=== PATIENT | male | born 1965 | race Caucasian/White ===

== ENCOUNTER 2021-11-18 17:50 | Inpatient (IN) | payer MEDICAID, MEDICARE ==
[~2021-11-18] VITALS: Ht 180.3 cm; Wt 100.7 kg
--- NOTE | 2021-11-18 19:00 | NUR ---
BIB [facility] 881 FORM A BUS BENCH,WORSENING RIGHT FOOT/LEG CELLULITIS. PLACED ON BED, AAXO4, BREATHING EVEN AND UNLABORED SATURATING AT 97%RA.
[2021-11-18] MEDS ORDERED: TDAP [DIPH/PERTUSSIS/TET] 0.5 ML VIAL IM ONE ×2 (20:30→21:03)
[2021-11-18] MEDS ORDERED: VANCOMYCIN 1 GM in IV D5W 250 ML IV ONE (20:30)
[2021-11-18] MEDS ORDERED: PIPERACILLIN /TAZOBACTAM 3.375 G in IV D5W 50 ML IV ONE (20:30)
[2021-11-18] MEDS ORDERED: IV NS 0.9% 1,000 ML BAG IV ONE ×2 (20:30→22:30)
--- NOTE | 2021-11-18 20:40 | NUR ---
BLOOD DRAWN AND SENT TO LAB
[2021-11-18] MEDS ORDERED: PIPERACILLIN /TAZOBACTAM 3.375 G VIAL IV ONE (21:02)
[2021-11-18] MEDS ORDERED: VANCOMYCIN 1 GM VIAL ONE (21:03)
[2021-11-18 21:31] LABS: HEMATOCRIT 30 % (39-51); HEMOGLOBIN 9.6 g/dL (13.5-17.5); LYMPHOCYTES # (AUTO) 2.1 K/uL (0.8-4.8); MEAN CORPUSCULAR HGB CONC 32 g/dl (31.0-36.0); MEAN CORPUSCULAR VOLUME 69 fL (80-96); MONOCYTES # (AUTO) 0.5 K/uL (0.1-1.30); MONOCYTES % (AUTO) 0.9 % (2.0-12.0); NEUTROPHILS # (AUTO) 49.3 K/uL (1.8-8.9); NEUTROPHILS % (AUTO) 95.1 % (43.0-81.0); PLATELET COUNT (AUTO) 577 K/uL (150-450); RED BLOOD CELL COUNT(AUTO) 4.33 MIL/uL (4.5-6.0)
[2021-11-18 21:39] LABS: WHITE BLOOD COUNT (AUTO) 51.9 K/uL (4.3-11.0)
--- NOTE | 2021-11-18 21:39 | NUR ---
CRITICAL RESULT WBC 51.9. YAQUELIN HDZ MADE AWARE.
--- NOTE | 2021-11-18 21:47 | NUR ---
SWAB FOR COVID19 SENT TO LAB
[2021-11-18 22:04] LABS: CARBON DIOXIDE 21 mmol/L (21-32); CHLORIDE 84 mmol/L (98-107); CREATININE 4.1 mg/dL (0.6-1.3); GLUCOSE 100 mg/dL (74-106)
[2021-11-18 22:10] LABS: ALANINE AMINOTRANSFERASE 32 U/L (12-78); ALBUMIN 1.7 g/dL (3.4-5.0); ALKALINE PHOSPHATASE 167 U/L (46-116); ASPARTATE AMINOTRANSFERASE 40 U/L (15-37); BILIRUBIN,DIRECT 0.9 mg/dL (0.0-0.2); BILIRUBIN,TOTAL 1.5 mg/dL (0.2-1.0); TOTAL PROTEIN, SERUM 10.3 g/dL (6.4-8.2)
[2021-11-18 22:21] LABS: SODIUM SERUM 120 mmol/L (136-145)
[2021-11-18 22:22] LABS: POTASSIUM 6.5 mmol/L (3.5-5.1); UREA NITROGEN, BLOOD 104 mg/dL (7-18)
[2021-11-18] MEDS ORDERED: DEXTROSE 50%-WATER 50 ML DISP.SYRIN IV ONE (22:30)
[2021-11-18] MEDS ORDERED: SODIUM BICARBONATE SYR 50 MEQ/50 ML DISP.SYRIN IV ONE (22:30)
[2021-11-18] MEDS ORDERED: INSULIN REGULAR, HUMAN 100 UNIT/ML 10 ML VIAL IV ONE (22:30)
[2021-11-18] MEDS ORDERED: DEXTROSE 50%-WATER 50 ML DISP.SYRIN IVP ONE (22:30)
[2021-11-18] MEDS ORDERED: ALBUTEROL FS 2.5 MG/3 ML VIAL.NEB NEB ONE (22:30)
[2021-11-18] MEDS ORDERED: SODIUM POLYSTYRENE SULFONATE 15 G/60 ML BOTTLE PO ONE (22:30)
[2021-11-18 22:48] LABS: BAND % (MANUAL) 16 % (0.0-5.0); BASOPHILS % (MANUAL) 0 % (0.0-2.0); EOSINOPHILS % (MANUAL) 0 % (0-4); LYMPHOCYTES % (MANUAL) 6 % (16-48); MONOCYTES % (MANUAL) 4 % (0-11.0); NEUTROPHILS % (MANUAL) 74 (42-76)
--- NOTE | 2021-11-18 23:04 | NUR ---
RAC #18G S/L PATENT AND INTACT,
[2021-11-18] MEDS ORDERED: MAG HYDROX/AL HYDROX/SIMETH 30 ML UDC PO PRN (23:30)
[2021-11-18] MEDS ORDERED: Z GUARD REMEDY 4 OZ OINT TP PRN (23:30)
[2021-11-18] MEDS ORDERED: MAGNESIUM HYDROXIDE 30 ML UDC PO PRN (23:30)
[2021-11-18] MEDS ORDERED: ACETAMINOPHEN 325 MG TABLET PO PRN (23:30)
--- NOTE | 2021-11-18 23:31 | NUR ---
RT CALLED FOR BREATHING TX
[2021-11-19] MEDS ORDERED: PERMETHRIN 59 ML BOTTLE TP ONE
--- NOTE | 2021-11-19 02:00 | NUR ---
IV CANNULA G18 INSERTED ON LEFT UPPER ARM.
[2021-11-19 02:42] LABS: CALCIUM, SERUM 7.2 mg/dL (8.5-10.1); POTASSIUM 5.2 mmol/L (3.5-5.1)
[2021-11-19 04:47] LABS: BASOPHILS % (AUTO) 0.1 % (0.0-2.0); HEMATOCRIT 28 % (39-51); HEMOGLOBIN 8.8 g/dL (13.5-17.5); LYMPHOCYTES # (AUTO) 1.2 K/uL (0.8-4.8); LYMPHOCYTES % (AUTO) 2.5 % (20.0-44.0); MEAN CORPUSCULAR HGB CONC 31 g/dl (31.0-36.0); MEAN CORPUSCULAR VOLUME 70 fL (80-96); MONOCYTES # (AUTO) 0.6 K/uL (0.1-1.30); MONOCYTES % (AUTO) 1.3 % (2.0-12.0); NEUTROPHILS # (AUTO) 45.3 K/uL (1.8-8.9); NEUTROPHILS % (AUTO) 96.1 % (43.0-81.0); PLATELET COUNT (AUTO) 444 K/uL (150-450); RED BLOOD CELL COUNT(AUTO) 4.06 MIL/uL (4.5-6.0)
[2021-11-19 04:58] LABS: WHITE BLOOD COUNT (AUTO) 47.1 K/uL (4.3-11.0)
[2021-11-19] MEDS ORDERED: MEROPENEM 1 G in IV NS 0.9% 100 ML IV SCH (05:00)
[2021-11-19] MEDS ORDERED: MEROPENEM 1 G VIAL IV ONE (05:10)
[2021-11-19 05:14] LABS: PHOSPHORUS 9.3 mg/dL (2.5-4.9)
[2021-11-19 05:24] LABS: BAND % (MANUAL) 21 % (0.0-5.0); LYMPHOCYTES % (MANUAL) 5 % (16-48); NEUTROPHILS % (MANUAL) 71 (42-76)
[2021-11-19 05:25] LABS: BASOPHILS % (MANUAL) 0 % (0.0-2.0); EOSINOPHILS % (MANUAL) 0 % (0-4); MONOCYTES % (MANUAL) 3 % (0-11.0)
--- NOTE | 2021-11-19 08:13 | NUR ---
ROOM 120
--- NOTE | 2021-11-19 08:27 | NUR ---
PT REPORT GIVEN TO PENG CARRASQUILLO
--- NOTE | 2021-11-19 08:57 | NUR ---
PT TRANSFERRED TO RM 120 FOR DMITRIY, WITH ACLS PROTOCOL.
--- NOTE | 2021-11-19 09:00 | NUR ---
RN OPENING NOTES RECEIVED PATIENT FROM EMERGENCY DEPARTMENT. IV ACCESS ON LEFT UPPER ARM PERIPHERAL IV, RUNNING NORMAL SALINE ORDERED. OXYGEN SATURATION 96-98% ON ROOM AIR. ATTCHED TO TELEMETRY MONITORING READING NORMAL SINUS. SAFETY MEASURES IMPLEMENTED, CALL LIGHT WITHIN REACH, WILL CONTINUE PLAN OF CARE AND ANTICIPATE NEEDS.
--- NOTE | 2021-11-19 09:19 | NUR ---
WOUND CARE CONSULT: PT PRESENTS WITH INSECT CRAWLING ON TOP OF SCALP AND WOUND TO RT LOWER LEG WITH MAGGOTS, PRESENT ON ADMISSION. DEFER TO PMD FOR POSSIBLE LICE. RECOMMEND DPM CONSULT FOR LOWER LEG. DR MATEUS YING MD IN AGREEMENT WITH PLAN OF CARE.
[2021-11-19] MEDS: IV NS 0.9% 1,000 ML IV PRN ×2 (10:16→20:46)
[2021-11-19 12:00] VITALS: BP 120/58
[2021-11-19] MEDS: DAKINS FULL STRENGTH (0.5%) 480 ML BOTTLE TOP SCH (15:46)
[2021-11-19 16:00] VITALS: BP 113/55
[2021-11-19] MEDS: MEROPENEM 1 G in IV NS 0.9% 100 ML IV SCH (17:00)
--- NOTE | 2021-11-19 18:58 | NUR ---
RN CLOSING NOTES PATIENT REMAINS IN ROOM. IV ACCESS ON LEFT UPPER ARM PERIPHERAL IV, RUNNING NORMAL SALINE ORDERED. OXYGEN SATURATION 96-98% ON ROOM AIR. ATTACHED TO TELEMETRY MONITORING READING NORMAL SINUS TO SINUS TACHY. WOUND CARE PERFORMED, DRESSING DRY AND INTACT. SAFETY MEASURES IMPLEMENTED, CALL LIGHT WITHIN REACH, WILL ENDORSE TO NIGHTSHIFT FOR CONTINUATION OF CARE.
--- NOTE | 2021-11-19 19:47 | NUR ---
WEIGHT INSPECTOR OPENING NOTES RECEIVED PT AWAKE IN BED. A/O X4, WITH IV ACCESS ON MANISHA #18G PERIPHERAL IV, RUNNING NORMAL SALINE AT 150 ML/HR. OXYGEN SATURATION 96-98% ON ROOM AIR. ATTACHED TO TELEMETRY MONITORING READING SR AT THIS TIME. NOTED WITH B LOWEG LEG WOUND, DRESSING DRY AND INTACT. SAFETY MEASURES IMPLEMENTED, BED IN LOWEST AND LOCKED POSITION, CALL LIGHT WITHIN REACH, WILL CONTINUE TO MONITOR THROUGHOUT THE SHIFT.
[2021-11-19 20:00] VITALS: BP 109/54
[2021-11-19] MEDS: CLINDAMYCIN 900 MG in IV D5W 50 ML IV SCH (20:54)
[2021-11-19] MEDS: FLUCONAZOLE (100 MG) 100 MG TABLET PO SCH (20:54)
[2021-11-19] MEDS: MORPHINE SULFATE INJ 2 MG/ML DISP.SYRIN IV PRN (20:55)
[2021-11-19] MEDS ORDERED: FLUCONAZOLE IN NS 100 MG in PREMIX 1 EA IV SCH ×2 (21:00)
[2021-11-19] MEDS ORDERED: CLINDAMYCIN IV RTU IN D5W 900 MG/50 ML PIGGYBACK IV SCH (21:00)
--- NOTE | 2021-11-19 22:05 | NUR ---
RN NOTE NOTED PT GRIMACING UPON CHANGING POSITION, GUARDING ON HIS R LEG, PATIENT REFUSED IV MORPHINE FOR PAIN. "I CAN'T BELIEVE YOU GIVING ME PAIN MEDICATION, MY PAIN RIGHT NOW IS TOLERABLE". EDUCATED ON THE COMFORT HE GETS AFTER GETTING THIS MEDICATION, PT STILL REFUSES. INSTRUCTED TO CALL FOR ASSISTANCE WHEN NEEDED. WILL CONT TO MONITOR.
[2021-11-19] MEDS ORDERED: VANCOMYCIN 1.25 GM in IV D5W 250 ML IV SCH (23:00)
[2021-11-20] VITALS: BP 110/52
[2021-11-20 04:00] VITALS: BP 111/57
[2021-11-20] MEDS: CLINDAMYCIN 900 MG in IV D5W 50 ML IV SCH ×3 (04:50→21:32)
--- NOTE | 2021-11-20 05:30 | NUR ---
RN NOTE PT IV ACCESS ON MANISHA #18G WAS INFILTRATED. IVF STOPPED, ICE PACKS PROVIDED. PT SCHEDULED IV ABX HELD AT THIS TIME. ATTEMPTED TO START NEW IV ACCESS ON THE RFA, NO BLOOD RETURN. PATIENT IS HARDSTICK, JACOB TOLLIVER MADE AWARE. SHE THEN INFORMED NURSING DRIVE THRU ORDER TAKER TO ORDER MIDLINE INSERTION. AWAITING FOR ML NURSE TO START AN IV ACCESS.
[2021-11-20] MEDS: IV NS 0.9% 1,000 ML IV PRN (06:34)
--- NOTE | 2021-11-20 06:41 | NUR ---
FISCAL SERVICES MANAGER CLOSING NOTES PT REMAINS IN BED AWAKE, A/O X4, ON ROOM AIR TOLERATING WELL WITH OXYGEN SATURATION 96-98%. ATTACHED TO TELEMETRY MONITORING READING SR AT THIS TIME. NOTED WITH R LOWER LEG WOUND, DRESSING DRY AND INTACT. NO IV ACCESS AT THIS TIME, AWAITING FOR MIDLINE INSERTION, KEPT DRY AND CLEAN, SAFETY MEASURES IMPLEMENTED, BED IN LOWEST AND LOCKED POSITION, CALL LIGHT WITHIN REACH, MAINTAINED IN CONTACT ISOLATION. WILL ENDORSE TO AM SHIFT NURSE FOR CONTINUITY OF CARE.
--- NOTE | 2021-11-20 07:30 | NUR ---
RN OPENING NOTE RECEIVED PATIENT IN BED.AWAKE, ALERT AND ORIENTED X4.ABLE TO MAKE NEEDS KNOWN. PATIENT HAS IV ACCESS ON LEFT UPPER ARM PERIPHERAL IV. IV SITE INFILLRIATED. WAITING FOR MIDLINE INSERTION. RUNNING NORMAL SALINE. O2 SATURATION TOLERATING AT 98%. PATIENT IS ON EXTERNAL TELEMETRRY MONITORING READING SINUS RHYTM.PATIENT HAS WOUND ON RIGHT LOWER EXTREMITY WOUND. ALL SAFETY MEASURES IN PLACE. CALL LIGHT WITHIN REACH.BED LOCKED AT LOWEST POSITION. SIDE RAILS UP X2. BED ALARM ON.
[2021-11-20 07:53] LABS: CREATININE 1.9 mg/dL (0.6-1.3); POTASSIUM 3.7 mmol/L (3.5-5.1)
[2021-11-20 08:00] VITALS: BP 129/58
[2021-11-20 08:22] LABS: BILIRUBIN,URINE NEGATIVE (NEGATIVE); COLOR,URINE YELLOW (YELLOW); LEUKOCYTE ESTERASE ,URINE NEGATIVE (NEGATIVE); NITRITE, URINE NEGATIVE (NEGATIVE); PH,URINE 5.5 (5.0-8.0); PROTEIN,URINE NEGATIVE (NEGATIVE); UGLUCOSE NEGATIVE (NEGATIVE); UROBILINOGEN,URINE 0.2 EU/dL (0.2)
[2021-11-20] MEDS: DAKINS QUARTER STRENGTH (0.125%) 480 ML BOTTLE TOP SCH (09:00)
[2021-11-20] MEDS: DAKINS FULL STRENGTH (0.5%) 480 ML BOTTLE TOP SCH (09:00)
[2021-11-20 09:11] LABS: BACTERIA,URINE None seen /HPF (None Seen); HYALINE CASTS, URINE Rare /LPF (None Seen); RBC,URINE 0-2 /HPF (0-2); SQUAMOUS EPITHELIAL CELL,UR None Seen /HPF (None Seen); URIC ACID CRYSTALS,URINE Many /HPF (None Seen); WBC,URINE NONE SEEN /HPF (0-3)
[2021-11-20] MEDS: MEROPENEM 1 G in IV NS 0.9% 100 ML IV SCH ×2 (10:07→17:10)
[2021-11-20 12:00] VITALS: BP 116/61
--- NOTE | 2021-11-20 14:38 | NUR ---
SS Consult: SS Consult requested for homelessness. The pt. is a 56-year-old male patient who came in for gangrene in the foot. Upon SS consult, the pt. is Alert & Oriented x 4 and makes good eye contact. The pt. appears very disheveled with depressed mood & affect. Pt.s speech and thought process are WNL. Pt. remained calm & cooperative throughout interview. Pt. Pt. denies SI/HI and denies hallucinations. Pt. denies any previous diagnosis of mental illness. JORDYN explored pt.s living situation. Patient states he is currently experiencing homelessness. SW explored pt.s drug & ETOH use. Pt. denies any drug or alcohol use. Pt. stated he is not really able to ambulate independently at this time and is otherwise independent with all his ADLs per pt. JORDYN explored pt.s support system. Pt. states he has no support system. Plan: SW was informed that pt. will possibly need SNF for IV antibiotics. JORDYN discussed this with pt. and he is agreeable to placement. JORDYN notified Susan RODRIGUES. JORDYN provided pt. with homeless and mental health resources, and he accepted them. Pt. signed homeless waiver and it was placed in the pt.s chart. JORDYN provided tp. with TAP card and pt. expressed appreciation. JORDYN notified the pt.s nurse. JORDYN provided pt. with homeless resources and pt. accepted them. Pt. refused to sign waiver and it was placed in the pt.s chart. Year-round shelters: [facility] [address] [place], [place] [id number] ; [facility] [address] [place] [address]; [facility] Yideev[address] [facility]. [facility] [address] Hygiene: [facility]: [address]. [place] ; [facility] [address] [facility] ; [facility] [address] . Food Resources: [place] [facility] at [facility]- [address] [place]; Meet Each Need with Dignity ([facility]) [address]; [facility] [address] [facility]; [facility] [address] [place] Gracie Arceka. Mental Health resources provided: [facility] [address] [place] [address] ; [facility] [address] [facility] [address], [place] [address] ; [facility] [address] [place] [address] ; [facility] [address] [place], [place] [phone] Healthcare Clinics: [facility] [address] [facility], [address] [place]. [place] ; [facility] [address] [facility] [address] [place] [address]; [facility] [address] [place] [phone] Counseling--[facility] [address], [place] [address] (Specializes in in-depth psychotherapy for emotional distress: anxiety, depression, interpersonal conflicts, life transitions, childhood abuse) [facility] [address] [place] [address] (Assist with solving problem marital difficulties, separation & divorce, aging parents, & grief, chronic & terminal illness) [facility] [address] [place] [address] (Deal with loss & grief, anxiety, marital difficulties) Homebound/Mental Health Services [address] [facility], [address] [place] [address] (Provide in-home mental services to people who are incapable of leaving their homes) [facility] [address] [place] [address] [facility] [address] [facility] [place]. [facility] [place] [address] PSYCHIATRIC OUTPATIENT SERVICES [facility] Partial Hospitalization and Intensive Outpatient Program (Managed Care and [place] Only)[address] [facility] [phone] [facility] Partial Hospitalization and Outpatient [address] [place], [place] [phone] [facility] [address] [place], [place] [phone] [facility] Partial Hospitalization and Outpatient [id number] [facility] Amrita, [phone] Substance Abuse resources provided included: [facility] Substance Abuse Self-Helpline ([facility]) ; [facility] [address] [facility]. [place] [phone] ; [facility] [address] [facility] [address] ; [facility] [address] [address] ; [facility] [address] [phone] ; [facility] [address] [facility] [facility] [facility] [address] ; [facility] [address] [facility] [phone] ; [facility] Substance Abuse Helpline([facility] ; [facility] ; [facility] [place]; [facility] [place]; [facility] [place]lo [place]; [facility] [place]; [facility]; [facility]; [facility] [place], [facility]. [place]; Alcoholics Anonymous -[facility]; Richi ; Marijuana Anonymous [facility]; Narcotics Anonymous www.na.org;
[2021-11-20 16:00] VITALS: BP 104/55
--- NOTE | 2021-11-20 19:30 | NUR ---
FINANCIAL SERVICES MANAGER OPENING NOTE RECEIVED PATIENT IN BED SLEPP, EASILY AROUSABLE, A/OX4.ABLE TO MAKE NEEDS KNOWN. ON RA TOLERATING WELL, NO S/S OF ACUTE DISTRESS, TELE MONITOR READING SR HR 84, IV ACCESS ON MANISHA #20G, RUNNING NS@150ML/HR. PATIENT HAS RLE BANDAGES COVERING WOUNDS DOCUMENTED IN CHART WITH PHOTOS. ALL SAFETY MEASURES IN PLACE. CALL LIGHT WITHIN REACH.BED LOCKED AT LOWEST POSITION. SIDE RAILS UP X2. BED ALARM ON. WILL CONTINUE TO MONITOR THROUGHOUT SHIFT.
--- NOTE | 2021-11-20 19:48 | NUR ---
RN CLOSING NOTE PATIENT ALERT AND ORIENTED X4. ABLE TO MAKE NEEDS KNOWN. ALL NEEDS MET. PATIENT HAS RIGHT UPPER ARM MIDLINE. IV SITE PATENT,INTACT AND FLUSHING WELL. PATIENT IS ON OXYGEN SATURATION TOLERATING AT ABOVE 95%. CHANGED WOUND DRESSING. KEPT CLEAN AND DRY. ALL SAFETY MEASURES IN PLACE. CALL LIGHT WITHIN REACH. BED LOCKED AT LOWEST POSITION. SIDE RAILS UP X2. BED ALARM ON. PATIENT ON CONTACT ISOLATION PRECAUTIONS DUE TO WOUND OF RIGHT LOWER EXTREMITY WOUND.
[2021-11-20 20:00] VITALS: BP 113/59
[2021-11-20] MEDS: FLUCONAZOLE (100 MG) 100 MG TABLET PO SCH (21:32)
[2021-11-21] VITALS: BP 108/55
[2021-11-21 04:00] VITALS: BP 111/64
[2021-11-21] MEDS: IV NS 0.9% 1,000 ML IV PRN ×2 (04:36→17:22)
[2021-11-21] MEDS: CLINDAMYCIN 900 MG in IV D5W 50 ML IV SCH ×3 (04:56→20:03)
[2021-11-21] MEDS: MEROPENEM 1 G in IV NS 0.9% 100 ML IV SCH ×2 (05:54→17:22)
--- NOTE | 2021-11-21 06:54 | NUR ---
ARCHITECTURAL DESIGNER CLOSING NOTE PATIENT IN BED SLEEP, EASILY AROUSABLE, A/OX4.ABLE TO MAKE NEEDS KNOWN. ON RA TOLERATING WELL, NO S/S OF ACUTE DISTRESS, TELE MONITOR READING SR HR 83, IV ACCESS ON MANISHA #20G, RUNNING NS@150ML/HR. PATIENT HAS RLE WOUNDS, CLEANED AND BANDAGED.ALL DUE MEDS GIVEN. ALL SAFETY MEASURES IN PLACE. BED IN LOWEST POSITION AND LOCKED, SIDE RAILS UP X3. PLACE CALL LIGHT WITHIN REACH. WILL ENDORSE TO MORNING SHIFT
--- NOTE | 2021-11-21 07:57 | NUR ---
RN OPENING NOTE RECEIVED PATIENT ALERT AND ORIENTED X4. ABLE TO MAKE NEEDS KNOWN. PATIENT HAS RIGHT UPPER ARM MIDLINE. PATIENT IS SINUS RHYTM ON TELE MONITOR. IV SITE PATENT,INTACT AND FLUSHING WELL. PATIENT IS ON ROOM AIR TOLERATING AT ABOVE 97%. ALL SAFETY MEASURES IN PLACE.PATIENT ON CONTACT ISOLATIONS DUE TO LICE AND MAGGOT INFESTED LOWER EXTREMITY WOUND. CALL LIGHT WITHIN REACH. BED LOCKED AT LOWEST POSITION. SIDE RAILS UP X2. BED ALARM ON. PATIENT ON CONTACT ISOLATION PRECAUTIONS DUE TO MAGGOT-INFESTED WOUND OF RIGHT LOWER EXTREMITY WOUND.
[2021-11-21 08:00] VITALS: BP 111/66
[2021-11-21] MEDS: DAKINS QUARTER STRENGTH (0.125%) 480 ML BOTTLE TOP SCH (10:42)
[2021-11-21] MEDS: DAKINS FULL STRENGTH (0.5%) 480 ML BOTTLE TOP SCH (10:42)
[2021-11-21] MEDS ORDERED: HYDROGEN PEROXIDE 480 ML BOTTLE TP PRN (11:00)
--- NOTE | 2021-11-21 11:00 | NUR ---
cable television access coordinator note called ct to follow up on when ct of right lower extremity wound of when it will be done.said they would get back to me and most likely procedure will be done Wednesday. notified manpower development manager chilango louis and charge nurse
[2021-11-21 12:00] VITALS: BP 118/61
[2021-11-21] MEDS: HEPARIN SODIUM, PORCINE 5000 UNITS/1 ML VIAL SQ SCH ×2 (12:12→20:04)
[2021-11-21 15:32] LABS: BILIRUBIN,TOTAL 0.4 mg/dL (0.2-1.0); CREATININE 1.4 mg/dL (0.6-1.3); MAGNESIUM 2.6 mg/dL (1.8-2.4); PHOSPHORUS 4.3 mg/dL (2.5-4.9); TOTAL PROTEIN, SERUM 7.7 g/dL (6.4-8.2)
[2021-11-21 16:00] VITALS: BP 117/63
[2021-11-21 16:16] LABS: EOSINOPHILS % (AUTO) 0.4 % (0.0-6.0); HEMATOCRIT 25 % (39-51); HEMOGLOBIN 7.7 g/dL (13.5-17.5); LYMPHOCYTES # (AUTO) 1.4 K/uL (0.8-4.8); LYMPHOCYTES % (AUTO) 6.1 % (20.0-44.0); MEAN CORPUSCULAR HGB CONC 31 g/dl (31.0-36.0); MEAN CORPUSCULAR VOLUME 71 fL (80-96); MONOCYTES # (AUTO) 0.8 K/uL (0.1-1.30); MONOCYTES % (AUTO) 3.4 % (2.0-12.0); NEUTROPHILS # (AUTO) 21.4 K/uL (1.8-8.9); NEUTROPHILS % (AUTO) 90.1 % (43.0-81.0); PLATELET COUNT (AUTO) 304 K/uL (150-450); RED BLOOD CELL COUNT(AUTO) 3.52 MIL/uL (4.5-6.0); WHITE BLOOD COUNT (AUTO) 23.8 K/uL (4.3-11.0)
[2021-11-21] MEDS: ALBUMIN 25% 25 GM in PREMIX 1 EA IV SCH (17:22)
--- NOTE | 2021-11-21 18:24 | NUR ---
SIGNAL APPRENTICE NOTES ISABEL CONTRERAS NOTIFIED ABOUT PT RITTER MCMULLEN, PLT OF 304 FROM 444 AND ALSO MRSA POSITIVE NARES. OKAY TO GIVE HEPARIN AND WILL ORDER BACTROBAN OINTMENT
--- NOTE | 2021-11-21 19:51 | NUR ---
TOW MOTOR DRIVER OPENING NOTE RECEIVED PATIENT ALERT AND ORIENTED X4. ABLE TO MAKE NEEDS KNOWN. PATIENT HAS RIGHT UPPER ARM MIDLINE. PATIENT IS SINUS RHYTM ON TELE MONITOR. IV SITE PATENT,INTACT AND FLUSHING WELL. PATIENT IS ON ROOM AIR TOLERATING AT ABOVE 97%. ALL SAFETY MEASURES IN PLACE.PATIENT ON CONTACT ISOLATIONS DUE TO LICE AND MAGGOT INFESTED LOWER EXTREMITY WOUND. CALL LIGHT WITHIN REACH. BED LOCKED AT LOWEST POSITION. SIDE RAILS UP X2. BED ALARM ON. PATIENT ON CONTACT ISOLATION PRECAUTIONS DUE TO MAGGOT-INFESTED WOUND OF RIGHT LOWER EXTREMITY WOUND. WILL CONTINUE TO MONITOR.
--- NOTE | 2021-11-21 19:52 | NUR ---
RN CLOSING NOTE PATIENT ALERT AND ORIENTED X4. ALL NEEDS MET.RIGHT UPPER ARM MIDLINE INTACT AND PATENT. SINUS RHYTM ON TELE MONITOR.ON ROOM AIR TOLERATING AT ABOVE 97%. ALL SAFETY MEASURES IN PLACE.PATIENT ON CONTACT ISOLATIONS DUE TO LICE AND MAGGOT INFESTED LOWER EXTREMITY WOUND. CALL LIGHT WITHIN REACH. BED LOCKED AT LOWEST POSITION. KEPT CLEAN AND DRY. CHANGED WOUND DRESSING WITH WOUND CARE DOCTOR. SIDE RAILS UP X2. BED ALARM ON. PATIENT ON CONTACT ISOLATION PRECAUTIONS DUE TO MAGGOT-INFESTED WOUND OF RIGHT LOWER EXTREMITY WOUND.
[2021-11-21] MEDS: MUPIROCIN OINT 2% 22 GM TUBE TP SCH (19:57)
[2021-11-21 20:00] VITALS: BP 115/62
[2021-11-21] MEDS: FLUCONAZOLE (100 MG) 100 MG TABLET PO SCH (20:02)
[2021-11-21 22:38] LABS: BAND % (MANUAL) 4 % (0.0-5.0); LYMPHOCYTES % (MANUAL) 7 % (16-48); MONOCYTES % (MANUAL) 3 % (0-11.0); NEUTROPHILS % (MANUAL) 86 (42-76)
[2021-11-22] VITALS: BP 120/61
[2021-11-22 04:00] VITALS: BP 117/60
[2021-11-22] MEDS: CLINDAMYCIN 900 MG in IV D5W 50 ML IV SCH ×3 (05:07→21:38)
[2021-11-22] MEDS: MEROPENEM 1 G in IV NS 0.9% 100 ML IV SCH ×3 (05:08→20:42)
[2021-11-22] MEDS: ALBUMIN 25% 25 GM in PREMIX 1 EA IV SCH (05:08)
[2021-11-22] MEDS: IV NS 0.9% 1,000 ML IV PRN ×3 (05:10→23:10)
[2021-11-22] MEDS: MUPIROCIN OINT 2% 22 GM TUBE TP SCH ×2 (06:09→17:33)
--- NOTE | 2021-11-22 07:36 | NUR ---
TROUBLE SHOOTER CLOSING NOTE PATIENT REMAINS IN BED, ALERT AND ORIENTED X4. ABLE TO MAKE NEEDS KNOWN. PATIENT HAS RIGHT UPPER ARM MIDLINE. PATIENT IS SINUS RHYTM ON TELE MONITOR. IV SITE PATENT,INTACT AND FLUSHING WELL. PATIENT IS ON ROOM AIR TOLERATING AT ABOVE 97%. ALL SAFETY MEASURES IN PLACE. PATIENT ON CONTACT ISOLATIONS DUE TO LICE AND MAGGOT INFESTED LOWER EXTREMITY WOUND. CALL LIGHT WITHIN REACH. ALL DUE MEDS GIVEN, KEPT DRY AND CLEAN, BED LOCKED AT LOWEST POSITION. SIDE RAILS UP X2. BED ALARM ON. PATIENT ON CONTACT ISOLATION PRECAUTIONS DUE TO MAGGOT-INFESTED WOUND OF RIGHT LOWER EXTREMITY WOUND. WILL ENDORSE TO AM SHIFT NURSE FOR CONTINUITY OF CARE.
[2021-11-22 08:00] VITALS: BP 109/62
--- NOTE | 2021-11-22 08:00 | NUR ---
RN NOTES RECEIVED PATIENT A//A/O X4 , ROOM AIR, REFUSED PAIN,VSS. PATIENT ABLE TO MAKE NEEDS KNOWN, SINUS RHYTM ON TELE MONITOR. IV SITE PATENT,INTACT AND FLUSHING WELL, INFUSING NS @150ML OF NS, DUE MEDICATION ADMINISTERED. PATIENT ON CONTACT ISOLATIONS. CALL LIGHT WITHIN REACH. ASSIST TURN AND REPOSTION. WILL FOLLOW UP.
[2021-11-22] MEDS: HEPARIN SODIUM, PORCINE 5000 UNITS/1 ML VIAL SQ SCH ×2 (10:50→20:43)
[2021-11-22] MEDS: DAKINS FULL STRENGTH (0.5%) 480 ML BOTTLE TOP SCH (10:50)
[2021-11-22] MEDS: DAKINS QUARTER STRENGTH (0.125%) 480 ML BOTTLE TOP SCH (10:51)
[2021-11-22 12:00] VITALS: BP 111/62
--- NOTE | 2021-11-22 12:30 | NUR ---
RN NOTES PATIENT REFUSED LUNCH NOTED NOD HUNGRY, WAITING WOUND MD FOR RIGHT LEG DRESSING CHANGE.
[2021-11-22 16:00] VITALS: BP 98/45
--- NOTE | 2021-11-22 18:05 | NUR ---
RN NOTES PATIENT HAS POOR APPETITE, REFUSED PAIN, REFUSED VIA RN TO CHANGE DRESSING, WAITING WOUND MD. PM MEDICATION ADMINISTERED. CALL LIGHT WITHIN TO REACH. ENDORSED ONCOMING NURSE FOLLOW DMITRIY.
--- NOTE | 2021-11-22 19:25 | NUR ---
RN OPENING NOTES RECEIVED CARE OF PATIENT FROM AM SHIFT NURSE, PATIENT IS SLEEPING, WAKES UP TO NAME, A/O X4, DOES NOT EXPRESS PAIN AT THIS TIME. PATIENT IS BREATHING UNDER ROOM AIR, TOLERATING WELL, NO SOB NOTED, O2 SAT 98%. PATIENT IS PLACED ON CONTACT ISOLATIONS DUE TO LICE AND MAGGOT INFESTED LOWER EXTREMITY WOUND. SAFETY MEASURES IMPLEMENTED PER HOSPITAL PROTOCOLS. WILL CARRY OUT PLAN OF CARE.
[2021-11-22 20:00] VITALS: BP 114/53
[2021-11-22] MEDS: FLUCONAZOLE (100 MG) 100 MG TABLET PO SCH (20:42)
[2021-11-23] VITALS: BP 120/80
[2021-11-23 04:00] VITALS: BP 111/82
[2021-11-23] MEDS: CLINDAMYCIN 900 MG in IV D5W 50 ML IV SCH ×3 (05:27→20:18)
[2021-11-23] MEDS: MEROPENEM 1 G in IV NS 0.9% 100 ML IV SCH ×3 (06:01→21:51)
[2021-11-23] MEDS: MUPIROCIN OINT 2% 22 GM TUBE TP SCH ×2 (06:01→17:35)
--- NOTE | 2021-11-23 07:37 | NUR ---
RN OPENING NOTES RECEIVED REPORT FROM SUPERINTENDENT TERMINAL NURSE, PATIENT IS SLEEPING, BREATHING UNDER ROOM AIR, TOLERATING WELL, NO SOB NOTED, O2 SAT 98%. PATIENT IS PLACED ON CONTACT ISOLATIONS DUE TO LICE AND MAGGOT INFESTED LOWER EXTREMITY WOUND. IV ACCESS ON RIGHT UPPER ARM MIDLINE 18 GAUGE RUNNING NORMAL SALINE ORDERED. SAFETY MEASURES IMPLEMENTED PER HOSPITAL PROTOCOLS. WILL CONTINUE PLAN OF CARE AND ANTICIPATE NEEDS.
[2021-11-23 08:00] VITALS: BP 129/66
[2021-11-23] MEDS: DAKINS QUARTER STRENGTH (0.125%) 480 ML BOTTLE TOP SCH (08:42)
[2021-11-23] MEDS: DAKINS FULL STRENGTH (0.5%) 480 ML BOTTLE TOP SCH (08:42)
[2021-11-23] MEDS: HEPARIN SODIUM, PORCINE 5000 UNITS/1 ML VIAL SQ SCH ×2 (08:44→21:00)
[2021-11-23 10:15] LABS: BASOPHILS % (AUTO) 0.1 % (0.0-2.0); EOSINOPHILS % (AUTO) 0.6 % (0.0-6.0); HEMATOCRIT 22 % (39-51); LYMPHOCYTES # (AUTO) 1.1 K/uL (0.8-4.8); LYMPHOCYTES % (AUTO) 7.5 % (20.0-44.0); MEAN CORPUSCULAR HGB CONC 31 g/dl (31.0-36.0); MEAN CORPUSCULAR VOLUME 71 fL (80-96); MONOCYTES # (AUTO) 0.7 K/uL (0.1-1.30); MONOCYTES % (AUTO) 4.8 % (2.0-12.0); NEUTROPHILS # (AUTO) 12.5 K/uL (1.8-8.9); PLATELET COUNT (AUTO) 230 K/uL (150-450); RED BLOOD CELL COUNT(AUTO) 3.14 MIL/uL (4.5-6.0); WHITE BLOOD COUNT (AUTO) 14.3 K/uL (4.3-11.0)
[2021-11-23 10:34] LABS: CALCIUM, SERUM 6.8 mg/dL (8.5-10.1); CREATININE 0.9 mg/dL (0.6-1.3)
[2021-11-23] MEDS: IV NS 0.9% 1,000 ML IV PRN ×2 (11:16→17:02)
[2021-11-23 12:00] VITALS: BP 137/71
--- NOTE | 2021-11-23 15:45 | NUR ---
PATIENT REFUSED WOUND CARE. EXPLAINED TO PATIENT THE IMPORTANCE OF DRESSING CHANGES. PATIENT INSISTS ON WAITING FOR PROVIDER MATEUS, TO ASSIST IN WOUND CARE Addendum: 11/23/21 at 1547 by NEIDA JIMENEZ RN DRESSING DRY AND INTACT. WILL CONTINUE PLAN OF CARE.
[2021-11-23 16:00] VITALS: BP 138/65
--- NOTE | 2021-11-23 18:32 | NUR ---
RN CLOSING NOTES PATIENT IS IN ROOM, BREATHING UNDER ROOM AIR, TOLERATING WELL, NO SOB NOTED, O2 SAT 100%. PATIENT IS PLACED ON CONTACT ISOLATIONS DUE TO LICE AND MAGGOT INFESTED LOWER EXTREMITY WOUND. IV ACCESS ON RIGHT UPPER ARM MIDLINE 18 GAUGE RUNNING NORMAL SALINE ORDERED. SAFETY MEASURES IMPLEMENTED PER HOSPITAL PROTOCOLS. WOUND DRESSINGS INTACT. WILL ENDORSE TO NIGHTSHIFT RN FOR CONTINUATION OF CARE.
[2021-11-23 20:00] VITALS: BP 113/69
[2021-11-23] MEDS: FLUCONAZOLE (100 MG) 100 MG TABLET PO SCH (20:21)
--- NOTE | 2021-11-23 21:00 | NUR ---
Noted patient with hemoglobin 7.0, Informed Gely Machuca regarding heparin administration due, and per her to hold it, order noted and carried out.
[2021-11-24] MEDS: IV NS 0.9% 1,000 ML IV PRN ×2 (03:46→18:15)
[2021-11-24 04:00] VITALS: BP 126/67
[2021-11-24] MEDS: CLINDAMYCIN 900 MG in IV D5W 50 ML IV SCH ×3 (04:08→22:01)
[2021-11-24] MEDS: MEROPENEM 1 G in IV NS 0.9% 100 ML IV SCH ×3 (04:38→22:00)
[2021-11-24] MEDS: MUPIROCIN OINT 2% 22 GM TUBE TP SCH ×2 (06:32→17:43)
--- NOTE | 2021-11-24 06:58 | NUR ---
FOREIGN LANGUAGE STENOGRAPHER CLOSING NOTE PT IN BED, ASLEEP THIS TIME, A/O X4, AT ROOM AIR WITH OPTIMAL O2 SAT LEVEL, NO SOB/ACUTE DISTRESS NOTED, MS STATUS, WOUND TREATMENT DONE ORDERED, PATIENT C/O PAIN, OFFERED PAIN MEDICATION ESPECIALLY BEFORE TREATMENT, AND PATIENT REFUSED, OTHERWISE NO SIGNIFICANT CHANGE IN CONDITION DURING THE NIGHT, ALL SAFETY MEASURES IN PLACE, CALL LIGHT WITHIN REACH AT ALL TIMES, WILL ENDORSE CONTINUITY OF CARE TO ONCOMING NURSE.
--- NOTE | 2021-11-24 07:40 | NUR ---
RN OPENING NOTES RECEIVED PT ALERT AND ORIENTED X4.PT TOLERATING O2 ON ROOM AIR AT 100&. PT IS MED SURG STATUS.PT IS CONTACT ISOLATION PRECAUTIONS DUE TO R LOWER EXTREMITY WOUND INFECTED WITH MAGGOTS AND LICE. PT HAS R UA MIDLINE. RUNNING NORMAL SALINE. ALL SAFETY MEASURES IN PLACE. CALL LIGHT WITHIN REACH. BED LOCKED AT LOWEST POSITION.
[2021-11-24 08:00] VITALS: BP 132/69
[2021-11-24] MEDS: HEPARIN SODIUM, PORCINE 5000 UNITS/1 ML VIAL SQ SCH ×2 (09:38→21:00)
[2021-11-24] MEDS: DAKINS FULL STRENGTH (0.5%) 480 ML BOTTLE TOP SCH (09:39)
[2021-11-24] MEDS: DAKINS QUARTER STRENGTH (0.125%) 480 ML BOTTLE TOP SCH (09:39)
--- NOTE | 2021-11-24 09:39 | NUR ---
rn note called to notify if heparin can be given, hgb 7.0, platelets 230. said ok to give
[2021-11-24] MEDS ORDERED: PANTOPRAZOLE 40 MG VIAL IV SCH (10:30)
[2021-11-24] MEDS: PROSOURCE / PROSTAT (PYXIS) 30 ML UDC GT SCH ×2 (13:00→17:00)
[2021-11-24 16:00] VITALS: BP 133/73
--- NOTE | 2021-11-24 18:50 | NUR ---
rn note prosource nutritional supplement ordered for patient. patient. checked nutiritonal room. prosource is not there.called dietary office/kitchen to follow-up but did not picker packer the phone. will endorse to vanita sterling rn
--- NOTE | 2021-11-24 19:30 | NUR ---
PT AWAKE IN BED. A/0 X4. ON ROOM AIR O2 AT 99%. PT ON CONTACT ISOLATION. ABDIFATAH MIDLINE INTACT AND PATENT. INFUSING NORMAL SALINE AT 150 ML/HR. NON AMBULATORY, ABLE TO USE URINAL. ALL SAFETY MEASURES AND PRECAUTIONS IN PLACE. BED LOCKED IN LOW POSITION. BED ALARM ON. BED RAILS PADDED TO PREVENT INJURY DURING SEIZURES. CALL LIGHT WITHIN REACH. WILL CONTINUE PLAN OF CARE AND ANTICIPATE NEEDS. Addendum: 11/25/21 at 0739 by JANEL YATES RN PT DOES NOT EXPERIENCE ANY SEIZURE. NO NEED FOR PADDED RAILS.
[2021-11-24 20:00] VITALS: BP 114/67
--- NOTE | 2021-11-24 20:06 | NUR ---
RN CLOSING NOTE PT A/0 X4. PT ROOM AIR O2 AT 100%. PT ON CONTACT ISOLATION. R UA MIDLINE INTACT AND PATENT. RUNNING NORMAL SALINE. PT HAS POOR APPETITE. ENCOURAGED ORAL INTAKE. PT REFUSES. WOUND CARE DONE WITH AMBAR WOUND CARE DOCTOR. ALL SAFETY MEASURES IN PLACE. CALL LIGHT WITHIN REACH. BED LOCKED AT LOWEST POSITION. BED ALARM ON. SIDE RAILS UP X2.
[2021-11-24] MEDS: FLUCONAZOLE (100 MG) 100 MG TABLET PO SCH (22:02)
[2021-11-25 04:00] VITALS: BP 131/73
[2021-11-25] MEDS: CLINDAMYCIN 900 MG in IV D5W 50 ML IV SCH ×3 (04:03→22:01)
[2021-11-25] MEDS: MORPHINE SULFATE INJ 2 MG/ML DISP.SYRIN IV PRN (04:03)
[2021-11-25] MEDS: MEROPENEM 1 G in IV NS 0.9% 100 ML IV SCH ×3 (04:03→22:25)
[2021-11-25] MEDS: ONDANSETRON HCL/PF 4 MG/2 ML VIAL IVP PRN (04:04)
[2021-11-25] MEDS: MUPIROCIN OINT 2% 22 GM TUBE TP SCH ×2 (06:30→17:59)
[2021-11-25] MEDS: IV NS 0.9% 1,000 ML IV PRN ×3 (06:55→18:18)
--- NOTE | 2021-11-25 07:37 | NUR ---
PT AWAKE IN BED. A/0 X4. ON ROOM AIR O2 AT 99%. PT ON CONTACT ISOLATION. ABDIFATAH MIDLINE INTACT AND PATENT. INFUSING NORMAL SALINE AT 150 ML/HR. NON AMBULATORY, ABLE TO USE URINAL. ALL SAFETY MEASURES AND PRECAUTIONS MAINTAINED. BED LOCKED IN LOW POSITION. BED ALARM ON. CALL LIGHT WITHIN REACH. WILL ENDORSE TO NEXT NURSE ON DUTY FOR CONTINUITY OF CARE.
--- NOTE | 2021-11-25 07:38 | NUR ---
CONTINUOUS PICKLING LINE PICKLER OPENING NOTES: RECEIVED PATIENT IN BED, AWAKE, ALERT, ORIENTED X 4. PATIENT HAS NO SOB NOTED, BREATHING EVEN AND UNLABORED. ON RA WITH OXYGEN SATURATION OF 96%. HAS IV MIDLINE ON LEFT UPPER ARM INFUSING WITH NS @ 150 ML/HR, NO S/S INFILTRATION NOTED. HOB KEPT SLIGHTLY ELEVATED. BED LOCKED AND IN LOWEST POSITION. CALL LIGHT WITHIN REACH. PATIENT USES URINAL. ALL SAFETY MEASURES IN PLACE. PATIENT'S DRESSING ON LOWER LEGS DRY AND INTACT. WILL CONTINUE TO MONITOR PATIENT THROUGHOUT SHIFT.
[2021-11-25] MEDS: HEPARIN SODIUM, PORCINE 5000 UNITS/1 ML VIAL SQ SCH (09:00)
[2021-11-25] MEDS: PROSOURCE / PROSTAT (PYXIS) 30 ML UDC GT SCH ×3 (09:37→16:20)
[2021-11-25] MEDS: ENSURE ENLIVE 237 ML LIQUID (VANILLA) PO SCH (09:38)
[2021-11-25] MEDS: PANTOPRAZOLE 40 MG TABLET.DR PO SCH (09:38)
[2021-11-25] MEDS: DAKINS FULL STRENGTH (0.5%) 480 ML BOTTLE TOP SCH (09:39)
[2021-11-25] MEDS: DAKINS QUARTER STRENGTH (0.125%) 480 ML BOTTLE TOP SCH (09:39)
[2021-11-25 09:46] LABS: BASOPHILS % (AUTO) 0.4 % (0.0-2.0); EOSINOPHILS % (AUTO) 1.5 % (0.0-6.0); HEMATOCRIT 22 % (39-51); HEMOGLOBIN 7.1 g/dL (13.5-17.5); LYMPHOCYTES # (AUTO) 1.2 K/uL (0.8-4.8); LYMPHOCYTES % (AUTO) 12.6 % (20.0-44.0); MEAN CORPUSCULAR HGB CONC 32 g/dl (31.0-36.0); MEAN CORPUSCULAR VOLUME 71 fL (80-96); MONOCYTES # (AUTO) 0.6 K/uL (0.1-1.30); MONOCYTES % (AUTO) 6.1 % (2.0-12.0); NEUTROPHILS # (AUTO) 7.7 K/uL (1.8-8.9); NEUTROPHILS % (AUTO) 79.4 % (43.0-81.0); PLATELET COUNT (AUTO) 223 K/uL (150-450); RED BLOOD CELL COUNT(AUTO) 3.11 MIL/uL (4.5-6.0); WHITE BLOOD COUNT (AUTO) 9.7 K/uL (4.3-11.0)
[2021-11-25 10:01] LABS: CALCIUM, SERUM 7.4 mg/dL (8.5-10.1); CREATININE 0.9 mg/dL (0.6-1.3); POTASSIUM 4.1 mmol/L (3.5-5.1)
[2021-11-25 12:00] VITALS: BP 133/63
[2021-11-25 12:09] LABS: BAND % (MANUAL) 2 % (0.0-5.0); EOSINOPHILS % (MANUAL) 2 % (0-4); LYMPHOCYTES % (MANUAL) 10 % (16-48); MONOCYTES % (MANUAL) 3 % (0-11.0); NEUTROPHILS % (MANUAL) 83 (42-76)
--- NOTE | 2021-11-25 18:55 | NUR ---
SELF PAY SPECIALIST CLOSING NOTES: PATIENT IN BED, AWAKE, ALERT, ORIENTED X 4, NO C/O PAIN OR DISCOMFORT AT THIS TIME. PATIENT REMAINS STABLE THE ENTIRE SHIFT. ALL NEEDS MET AND ANTICIPATED. CALL LIGHT WITHIN REACH. HOB KEPT ELEVATED. BED LOCKED AND IN LOWEST POSITION. WILL ENDORSE TO NEXT SHIFT NURSE FOR CONTINUITY OF CARE.
--- NOTE | 2021-11-25 19:55 | NUR ---
RESIDENT REMOVED REMOVED DRESSINGS LT AND RIGHT BUTTOCK, NOTED SCRATCHING SACRAL AREA, NOT COMPLIANT WITH WOUND CARE, A NEW OCCURRENCE ON SACRAL NOTED WITH MULTIPLE DEEP FRESH BLOODY SCRATCHES, KEPT AREA CLEAN AND DRY PATIENT TEACHING PROVIDED. AFTER WOUND CARE DONE APPLIED MEPILEX AND PATIENT REMOVED DRESSING AND THREW ON THE FLOOR. HAND WASHING PROVIDED. PICTURE TAKEN AND FOR WOUND CONSULT. REFUSED TO HAVE ANYTHING ON LEFT AND RIGHT BUTTOCK AND SACRAL AREA.
[2021-11-25 20:00] VITALS: BP 141/71
--- NOTE | 2021-11-25 20:00 | NUR ---
MED SURGE OPEN NOTE: ALERT AND ORIENTED X4. VERBALLY RESPONSIVE. RIGHT UPPER ARM MIDLINE IN PLACE WITH CLEAN DRESSING, PATENT WITH NO S/S OF COMPLICATIONS. LEFT UPPER ARM MIDLINE PATENT WITH CLEAN DRESSING. IVF OF NS 150ML/HR. RIGHT LEG WOUND DRESSING ON. LEFT HEEL WOUND DRESSING ON. NO DRESSING ON LEFT AND RIGHT BUTTOCKS, REFUSES TO HAVE WOUND CARE AND DRESSINGS ON AT THIS TIME. COMPLAINTS OF PAIN 10/10 ON RIGHT LEG WOUND SITE WHEN HE MOVES IT BUT DECLINES PAIN MEDICATION, PATIENT STATED HE DOES NOT WANT TO TAKE ANYTHING FOR PAIN. PATIENT TEACHING PROVIDED REGARDING RISKS VS BENEFITS OF WOUND CARE AND PAIN MEDICATIONS VERBALIZED UNDERSTANDING AND STILL REFUSED. OFFERED TIMES THREE. REPOSITIONED WITH PILLOWS. HOB [id number] DEGREE. BILATERAL HALF SIDE RAILS UP X2. BED LOCKED, IN LOW POSITION, BED ALARM ON. CALL LIGHT IN REACH.
[2021-11-25] MEDS: FLUCONAZOLE (100 MG) 100 MG TABLET PO SCH (22:25)
--- NOTE | 2021-11-25 23:45 | NUR ---
VANGIE GILLILAND NOTIFIED PATIENT HGB 7.1 HCT 22 WITH CURRENT ORDER FOR HEPARIN WITH ORDER TO DC ORDER NOTED AND CARRIED OUT.
[2021-11-26] MEDS: IV NS 0.9% 1,000 ML IV PRN ×2 (01:50→09:53)
[2021-11-26 04:00] VITALS: BP_SYST 125; BP_SYST 137; BP_DIAS 73; BP_DIAS 75
[2021-11-26] MEDS: CLINDAMYCIN 900 MG in IV D5W 50 ML IV SCH ×3 (05:30→21:28)
[2021-11-26] MEDS: ONDANSETRON HCL/PF 4 MG/2 ML VIAL IVP PRN (05:53)
[2021-11-26] MEDS: MEROPENEM 1 G in IV NS 0.9% 100 ML IV SCH (05:53)
[2021-11-26] MEDS: MUPIROCIN OINT 2% 22 GM TUBE TP SCH ×2 (06:30→17:53)
--- NOTE | 2021-11-26 07:00 | NUR ---
MED SURGE CLOSING NOTE: ALERT AND ORIENTED X4. VERBALLY RESPONSIVE. RIGHT UPPER ARM MIDLINE IN PLACE WITH CLEAN DRESSING, PATENT WITH NO S/S OF COMPLICATIONS. LEFT UPPER ARM MIDLINE PATENT WITH CLEAN DRESSING. IVF OF NS 150ML/HR. RIGHT LEG WOUND DRESSING ON. LEFT HEEL WOUND DRESSING ON. CONTINUES TO REFUSE WOUND CARE DRESSING ON LEFT AND RIGHT BUTTOCKS, REFUSES TO HAVE WOUND CARE AND DRESSINGS ON AT THIS TIME. CONTINUE TO COMPLAINT OF PAIN 10/10 ON RIGHT LEG WOUND SITE WHEN HE MOVES IT BUT DECLINES PAIN MEDICATION WHEN OFFERED. PATIENT CONTINUES TO STATE HE DOES NOT WANT TO TAKE ANYTHING FOR PAIN. PATIENT TEACHING PROVIDED REGARDING RISKS VS BENEFITS OF WOUND CARE AND PAIN MEDICATIONS VERBALIZED UNDERSTANDING AND STILL REFUSED. AWAITING WOUND CONSULT. OFFERED TIMES THREE. REPOSITIONED WITH PILLOWS. HOB [id number] DEGREE. BILATERAL HALF SIDE RAILS UP X2. BED LOCKED, IN LOW POSITION, BED ALARM ON. CALL LIGHT IN REACH.
--- NOTE | 2021-11-26 07:30 | NUR ---
RN OPENING NOTE PATIENT IS IN BED AWAKE, ALERT, AND ORIENTED X 4. ON ROOM AIR,BREATHING UNLABORED AND NOT IN ANY FORM OF DISTRESS. WITH RIGHT UPPER ARM MIDLINE AND LEFT UPPER ARM MIDLINE INTACT AND PATENT. ALL HOSPITAL SAFETY PRECAUTIONS IN PLACE, BED IS LOCKED IN LOWEST POSITION, 3 SIDE RAILS UP, CALL LIGHT WITHIN REACH. WILL CONTINUE TO MONITOR THROUGHOUT SHIFT.
--- NOTE | 2021-11-26 08:23 | NUR ---
WOUND CARE CONSULT: PT SEEN FOR RT BUTTOCK, LEFT BUTTOCK, SACRAL AND LEFT HEEL DEEP TISSUE INJURIES. PT IS ABLE TO TURN AND REPOSITION HIMSELF IN BED. PT HAS BEEN PREVIOUSLY UNCOOPERATIVE WITH NURSING STAFF AND THROWING DRESSINGS ON THE FLOOR PER NURSE. PT NOTED TO HAVE MULTIPLE CO-MORBIDITIES INCLUDING SEVERE SEPSIS, ACUTE KIDNEY INJURY, SEVERE MALNUTRITION, SEVERELY INFECTED RT LOWER LEG WOUND WITH PREVIOUS MAGGOT INFESTATION, AND PEDICULOSIS. DUE TO MULTIPLE CO-MORBIDITIES, FURTHER SKIN BREAKDOWN MAY BE UNAVOIDABLE. DISCUSSED SKIN PROTECTION AND WOUND CARE FOR TRUNK OF BODY WITH NURSING STAFF. SURGICAL CONSULT CALLED TO DR SURY SMILEY. DR IGNACIO NOTIFIED OF LEFT HEEL INTACT DEEP TISSUE INJURY. IN AGREEMENT WITH PLAN OF CARE. Addendum: 11/26/21 at 0837 by FERNANDA COLNO WNDNU PT NOTED TO BE SCRATCHING AT HIS SACRAL/BUTTOCKS AREA. PT ADVISED TO STOP SCRATCHING HIS SKIN AND INFORMED THAT HIS SKIN IS BROKEN AND TO PLEASE ALLOW NURSING STAFF TO PLACE A DRESSING. PT STATED THANK YOU BUT STATED WAS SUSPICIOUS OF DRESSING.
[2021-11-26] MEDS: PANTOPRAZOLE 40 MG TABLET.DR PO SCH (08:24)
[2021-11-26] MEDS: ENSURE ENLIVE 237 ML LIQUID (VANILLA) PO SCH (08:25)
[2021-11-26] MEDS: PROSOURCE / PROSTAT (PYXIS) 30 ML UDC GT SCH ×3 (08:25→17:53)
[2021-11-26] MEDS: DAKINS QUARTER STRENGTH (0.125%) 480 ML BOTTLE TOP SCH (09:48)
[2021-11-26] MEDS: DAKINS FULL STRENGTH (0.5%) 480 ML BOTTLE TOP SCH (09:48)
[2021-11-26] MEDS: DICYCLOMINE HCL 10 MG CAPSULE PO SCH ×3 (11:08→17:00)
--- NOTE | 2021-11-26 11:12 | NUR ---
RN NOTE PATIENT COMPLAINED OF ABDOMINAL PAIN. DR. GAONA MADE AWARE. BENTYL GIVEN ORDERED.
[2021-11-26 12:00] VITALS: BP 155/87
--- NOTE | 2021-11-26 17:55 | NUR ---
RN NOTE PATIENT REFUSED BENTYL SAYING THAT IT MAKES HIS ABDOMINAL PAIN WORSE.
--- NOTE | 2021-11-26 18:58 | NUR ---
RN CLOSING NOTE PATIENT REMAINED STABLE THROUGHOUT SHIFT. ON ROOM AIR, BREATHING UNLABORED AND NOT IN ANY FORM OF DISTRESS.ALL IV LINES REMAIN INTACT AND PATENT. WOUND CARE DONE. ALL HOSPITAL SAFETY PRECAUTION IN PLACE. WILL ENDORSE TO TYPING SECTION CHIEF NURSE.
[2021-11-26 20:00] VITALS: BP 147/68
[2021-11-26] MEDS: CEFEPIME 2 GM in IV D5W 100 ML IV SCH (22:28)
[2021-11-27 04:00] VITALS: BP 125/75
[2021-11-27] MEDS: IV NS 0.9% 1,000 ML IV PRN ×2 (04:06→14:05)
[2021-11-27] MEDS: CLINDAMYCIN 900 MG in IV D5W 50 ML IV SCH ×3 (04:06→22:00)
[2021-11-27] MEDS: MUPIROCIN OINT 2% 22 GM TUBE TP SCH ×2 (05:56→18:44)
--- NOTE | 2021-11-27 06:30 | NUR ---
RN CLOSING NOTE: ALERT AND ORIENTED X4. UNLABORED BREATHING ON RA SATING AT 98 %. HOB ELEVATED ON SEMI-FOWLERS POSITION. KEPT CLEAN AND DRY. TURNED AND REPOSITIONED WITH PILLOWS. ISOLATION PRECAUTIONS MAINTAINED. NO A/R TO ABX. IVF ORDERED. ALL IV LINES IN PLACE PATENT AND WITH NO COMPLICATIONS. HOB ELEVATED. BILATERAL HALF SIDE RAILS UP X2. BED IN LOWEST POSITION. BED IS LOCKED. BED EXIT ALARM ON. CALL LIGHT IN REACH.
[2021-11-27 08:00] VITALS: BP 147/70
[2021-11-27] MEDS: PANTOPRAZOLE 40 MG TABLET.DR PO SCH (09:26)
[2021-11-27] MEDS: CEFEPIME 2 GM in IV D5W 100 ML IV SCH ×2 (09:27→23:00)
[2021-11-27] MEDS: DICYCLOMINE HCL 10 MG CAPSULE PO SCH ×3 (09:27→16:21)
[2021-11-27] MEDS: ENSURE ENLIVE 237 ML LIQUID (VANILLA) PO SCH (09:27)
[2021-11-27] MEDS: DAKINS QUARTER STRENGTH (0.125%) 480 ML BOTTLE TOP SCH ×2 (09:28→11:48)
[2021-11-27] MEDS: DAKINS FULL STRENGTH (0.5%) 480 ML BOTTLE TOP SCH (09:28)
[2021-11-27] MEDS: PROSOURCE / PROSTAT (PYXIS) 30 ML UDC GT SCH ×3 (09:29→16:21)
--- NOTE | 2021-11-27 10:41 | NUR ---
WOUND CARE FOLLOW UP: PT IS NOW ALLOWING DRESSINGS ON HIS BUTTOCKS AND SACRUM. DISCUSSED WOUND TREATMENT PLAN WITH MAYNOR, SURGICAL N.P. AND ORDERS UPDATED TODAY. DISCUSSED WITH NURSING STAFF. IN AGREEMENT WITH PLAN OF CARE.
[2021-11-27] MEDS: THERAHONEY GEL 1.5 OZ TUBE TP SCH (11:49)
[2021-11-27 16:00] VITALS: BP 120/55
--- NOTE | 2021-11-27 18:56 | NUR ---
RN CLOSING NOTE: PATIENT REMAINS IN ROOM IN NO SIGNS OF RESPIRATORY DISTRESS,ON ROOM AIR ;TOLERATING WELL SATURATING @ >95% SP02. SAFETY MEASURES IMPLEMENTED, BED IN LOWEST POSITION, LOCKED, SIDE RAILS UP, CALL LIGHT WITHIN REACH. ALL NEEDS AND ORDERS ADDRESSED DURING THE SHIFT. IV ACCESS MAINTAINED INTACT,WITH NS RUNNING AT 150 ML/HR. SECURED AND FLUSHING WELL. ALL DUE MEDS GIVEN ORDERED & SCHEDULED ; PATIENT TOLERATED WELL. PATIENT KEPT CLEAN AND COMFORTABLE WITHIN THE SHIFT. PATIENT ENDORSED TO INCOMING SHIFT RN WITH STABLE VITAL SIGN AND FOR CONTINUITY OF CARE.
[2021-11-28] VITALS: BP_SYST 125; BP_SYST 130; BP_DIAS 64; BP_DIAS 70
[2021-11-28] MEDS: IV NS 0.9% 1,000 ML IV PRN ×3 (00:55→16:07)
[2021-11-28] MEDS: CLINDAMYCIN 900 MG in IV D5W 50 ML IV SCH ×3 (05:07→21:05)
--- NOTE | 2021-11-28 06:49 | NUR ---
RN CLOSING NOTE: ALERT AND ORIENTED X4. UNLABORED BREATHING ON RA SATING AT 99 %. HOB ELEVATED ON SEMI-FOWLERS POSITION. KEPT CLEAN AND DRY. TOPICAL TREAMET ORDERED TO ALL AFFECTED AREAS. ABLE TO SELF TURN AND REPOSITIONED WITH PILLOWS. ISOLATION PRECAUTIONS MAINTAINED. NO A/R TO ABX. IVF ORDERED. ALL IV LINES IN PLACE PATENT AND WITH NO COMPLICATIONS. HOB ELEVATED. BILATERAL HALF SIDE RAILS UP X2. BED IN LOWEST POSITION. BED IS LOCKED. BED EXIT ALARM ON. CALL LIGHT IN REACH.
[2021-11-28] MEDS: MUPIROCIN OINT 2% 22 GM TUBE TP SCH (07:03)
[2021-11-28 08:00] VITALS: BP 137/68
[2021-11-28] MEDS ORDERED: LIDOCAINE 2%-EPI 1:100,000 30 ML VIAL TP ONE ×2 (08:30→12:00)
[2021-11-28] MEDS ORDERED: SILVER NITRATE APPLICATOR 1 EA BOX TP SCH (08:30)
[2021-11-28] MEDS ORDERED: LIDOCAINE 1%-EPI 1:100,000 20 ML VIAL TP ONE (08:30)
[2021-11-28] MEDS: PROSOURCE / PROSTAT (PYXIS) 30 ML UDC GT SCH ×3 (08:48→16:20)
[2021-11-28] MEDS: ENSURE ENLIVE 237 ML LIQUID (VANILLA) PO SCH (08:49)
[2021-11-28] MEDS: DICYCLOMINE HCL 10 MG CAPSULE PO SCH ×3 (08:51→16:21)
[2021-11-28] MEDS: PANTOPRAZOLE 40 MG TABLET.DR PO SCH (08:51)
[2021-11-28] MEDS: CEFEPIME 2 GM in IV D5W 100 ML IV SCH ×2 (08:51→21:05)
[2021-11-28] MEDS: THERAHONEY GEL 1.5 OZ TUBE TP SCH (09:00)
[2021-11-28] MEDS: DAKINS QUARTER STRENGTH (0.125%) 480 ML BOTTLE TOP SCH (09:01)
[2021-11-28] MEDS: DAKINS FULL STRENGTH (0.5%) 480 ML BOTTLE TOP SCH (11:44)
[2021-11-28 16:00] VITALS: BP 134/63
--- NOTE | 2021-11-28 18:42 | NUR ---
RN CLOSING NOTE: PATIENT REMAINS ON ROOM AIR ;TOLERATING WELL SATURATING @ >95% SP02. SAFETY MEASURES IMPLEMENTED, BED IN LOWEST POSITION, LOCKED, SIDE RAILS UP, CALL LIGHT WITHIN REACH. ALL NEEDS AND ORDERS ADDRESSED DURING THE SHIFT. IV ACCESS MAINTAINED INTACT,WITH NS RUNNING AT 150 ML/HR. SECURED AND FLUSHING WELL. ALL DUE MEDS GIVEN ORDERED & SCHEDULED ; PATIENT TOLERATED WELL. PATIENT KEPT CLEAN AND COMFORTABLE WITHIN THE SHIFT. WILL ENDORSE MARKETING ADMINISTRATIVE ASSISTANT NURSE TO FALLOW UP WITH POC.
[2021-11-29] VITALS: BP 134/63
[2021-11-29] MEDS: IV NS 0.9% 1,000 ML IV PRN ×3 (00:28→16:41)
[2021-11-29] MEDS: CLINDAMYCIN 900 MG in IV D5W 50 ML IV SCH ×3 (05:16→21:21)
[2021-11-29 07:14] LABS: BASOPHILS # (AUTO) 0.1 K/uL (0.0-0.2); LYMPHOCYTES # (AUTO) 1.4 K/uL (0.8-4.8); LYMPHOCYTES % (AUTO) 17.4 % (20.0-44.0); MEAN CORPUSCULAR HGB CONC 32 g/dl (31.0-36.0); MEAN CORPUSCULAR VOLUME 71 fL (80-96); MONOCYTES # (AUTO) 0.7 K/uL (0.1-1.30); MONOCYTES % (AUTO) 8.1 % (2.0-12.0); NEUTROPHILS # (AUTO) 5.9 K/uL (1.8-8.9); NEUTROPHILS % (AUTO) 71.5 % (43.0-81.0); PLATELET COUNT (AUTO) 247 K/uL (150-450); RED BLOOD CELL COUNT(AUTO) 2.86 MIL/uL (4.5-6.0); WHITE BLOOD COUNT (AUTO) 8.2 K/uL (4.3-11.0)
[2021-11-29 07:22] LABS: HEMATOCRIT 20 % (39-51)
[2021-11-29 07:24] LABS: HEMOGLOBIN 6.6 g/dL (13.5-17.5)
[2021-11-29 07:36] LABS: CALCIUM, SERUM 7.1 mg/dL (8.5-10.1); CREATININE 0.7 mg/dL (0.6-1.3); POTASSIUM 3.6 mmol/L (3.5-5.1)
[2021-11-29 08:00] VITALS: BP 133/74
[2021-11-29] MEDS: CEFEPIME 2 GM in IV D5W 100 ML IV SCH ×2 (09:09→21:21)
[2021-11-29] MEDS: DICYCLOMINE HCL 10 MG CAPSULE PO SCH ×3 (09:09→17:26)
[2021-11-29] MEDS: PROSOURCE / PROSTAT (PYXIS) 30 ML UDC GT SCH ×3 (09:09→17:11)
[2021-11-29] MEDS: PANTOPRAZOLE 40 MG TABLET.DR PO SCH (09:09)
[2021-11-29] MEDS: ENSURE ENLIVE 237 ML LIQUID (VANILLA) PO SCH (09:10)
[2021-11-29] MEDS: DAKINS FULL STRENGTH (0.5%) 480 ML BOTTLE TOP SCH (09:11)
[2021-11-29] MEDS: DAKINS QUARTER STRENGTH (0.125%) 480 ML BOTTLE TOP SCH (09:11)
[2021-11-29] MEDS: THERAHONEY GEL 1.5 OZ TUBE TP SCH (09:12)
[2021-11-29 10:12] LABS: EOSINOPHILS % (MANUAL) 4 % (0-4); LYMPHOCYTES % (MANUAL) 21 % (16-48); MONOCYTES % (MANUAL) 1 % (0-11.0); NEUTROPHILS % (MANUAL) 74 (42-76)
[2021-11-29 15:36] VITALS: BP 133/72
--- NOTE | 2021-11-29 15:36 | NUR ---
RN NOTES: STARTED 1 BAG OF PRBC ORDERED. INITIAL VITAL SIGNS TAKEN AND NOTED TO BE WNL. INFUSED PER PROTOCOL. WILL CONTINUE TO MONITOR AND ASSESS FOR ANY BLOOD TRANSFUSION REACTION AND ADDRESS ACCORDINGLY. SECONDARY ART TEACHER WELL AWARE.
[2021-11-29 16:00] VITALS: BP 133/63
[2021-11-29 18:45] VITALS: BP 133/68
--- NOTE | 2021-11-29 18:45 | NUR ---
RN NOTES: 1 unit rbc transfused well tolerated no reaction noted,vital remains within normal
--- NOTE | 2021-11-29 19:19 | NUR ---
RN CLOSING NOTE: PATIENT REMAINS IN ROOM IN NO SIGNS OF RESPIRATORY DISTRESS,ON ROOM AIR ;TOLERATING WELL SATURATING @ 95% SP02. SAFETY MEASURES IMPLEMENTED, BED IN LOWEST POSITION, LOCKED, SIDE RAILS UP, CALL LIGHT WITHIN REACH. ALL NEEDS AND ORDERS ADDRESSED DURING THE SHIFT. IV ACCESS MAINTAINED INTACT,WITH NS RUNNING AT 150 ML/HR. SECURED AND FLUSHING WELL. ALL DUE MEDS GIVEN ORDERED & SCHEDULED ; PATIENT TOLERATED WELL. PATIENT KEPT CLEAN AND COMFORTABLE WITHIN THE SHIFT. PATIENT ENDORSED TO INCOMING SHIFT RN WITH STABLE VITAL SIGN AND FOR CONTINUITY OF CARE.
--- NOTE | 2021-11-29 19:30 | NUR ---
RN NOTE Patient in bed, AO x 4, in no acute distress, saturation at 98% on room air, HR is 77. midline at ABDIFATAH and MANISHA patent and flushing well with NS infusing at 150 ml/hr. Wound dressing at BLE intact. Will cont to monitor and reassess.
[2021-11-30 04:00] VITALS: BP 149/77
[2021-11-30] MEDS: IV NS 0.9% 1,000 ML IV PRN ×4 (05:32→21:25)
[2021-11-30] MEDS: CLINDAMYCIN 900 MG in IV D5W 50 ML IV SCH ×3 (05:32→21:21)
[2021-11-30 06:42] LABS: BASOPHILS # (AUTO) 0.1 K/uL (0.0-0.2); BASOPHILS % (AUTO) 0.7 % (0.0-2.0); EOSINOPHILS % (AUTO) 2.7 % (0.0-6.0); HEMATOCRIT 23 % (39-51); HEMOGLOBIN 7.5 g/dL (13.5-17.5); LYMPHOCYTES # (AUTO) 1.5 K/uL (0.8-4.8); LYMPHOCYTES % (AUTO) 15.9 % (20.0-44.0); MEAN CORPUSCULAR HGB CONC 33 g/dl (31.0-36.0); MEAN CORPUSCULAR VOLUME 73 fL (80-96); MONOCYTES # (AUTO) 0.7 K/uL (0.1-1.30); MONOCYTES % (AUTO) 7.6 % (2.0-12.0); NEUTROPHILS # (AUTO) 6.8 K/uL (1.8-8.9); NEUTROPHILS % (AUTO) 73.1 % (43.0-81.0); PLATELET COUNT (AUTO) 255 K/uL (150-450); RED BLOOD CELL COUNT(AUTO) 3.15 MIL/uL (4.5-6.0); WHITE BLOOD COUNT (AUTO) 9.3 K/uL (4.3-11.0)
[2021-11-30 07:13] LABS: BILIRUBIN,TOTAL 0.4 mg/dL (0.2-1.0); CALCIUM, SERUM 7.4 mg/dL (8.5-10.1); CREATININE 0.8 mg/dL (0.6-1.3); MAGNESIUM 1.4 mg/dL (1.8-2.4); PHOSPHORUS 3.5 mg/dL (2.5-4.9); POTASSIUM 3.6 mmol/L (3.5-5.1); TOTAL PROTEIN, SERUM 6.8 g/dL (6.4-8.2)
[2021-11-30 07:14] LABS: ALBUMIN 1.1 g/dL (3.4-5.0)
--- NOTE | 2021-11-30 07:20 | NUR ---
RN OPENING NOTES PT ALERT AND ORIENTED X4.PT TOLERATING O2 ON ROOM AIR AT 100&. PT IS MED SURG STATUS.PT IS CONTACT ISOLATION PRECAUTIONS DUE TO R LOWER EXTREMITY WOUND INFECTED AND CELLULITIS.. PT HAS R UA AND L UP MIDLINE. RUNNING NORMAL SALINE AT 150 CC/HR ALL SAFETY MEASURES IN PLACE. CALL LIGHT WITHIN REACH. BED LOCKED AT LOWEST POSITION. BEDSIDE TABLE NEXT TO PATIENT
[2021-11-30 08:00] VITALS: BP 138/74
[2021-11-30] MEDS: DAKINS QUARTER STRENGTH (0.125%) 480 ML BOTTLE TOP SCH (09:00)
[2021-11-30] MEDS: DICYCLOMINE HCL 10 MG CAPSULE PO SCH ×3 (09:30→16:56)
[2021-11-30] MEDS: PROSOURCE / PROSTAT (PYXIS) 30 ML UDC GT SCH ×3 (09:30→17:00)
[2021-11-30] MEDS: CEFEPIME 2 GM in IV D5W 100 ML IV SCH ×2 (09:30→20:39)
[2021-11-30] MEDS: PANTOPRAZOLE 40 MG TABLET.DR PO SCH (09:31)
[2021-11-30] MEDS: THERAHONEY GEL 1.5 OZ TUBE TP SCH (09:56)
[2021-11-30] MEDS: ENSURE ENLIVE 237 ML LIQUID (VANILLA) PO SCH (09:56)
[2021-11-30 10:53] LABS: NEUTROPHILS % (MANUAL) 72 (42-76)
[2021-11-30 10:54] LABS: BAND % (MANUAL) 6 % (0.0-5.0); BASOPHILS % (MANUAL) 0 % (0.0-2.0); EOSINOPHILS % (MANUAL) 1 % (0-4); LYMPHOCYTES % (MANUAL) 16 % (16-48); MONOCYTES % (MANUAL) 5 % (0-11.0)
[2021-11-30] MEDS: Magnesium 1GM/D5W 100ML PREMIX 100 ML IV SCH ×4 (11:12→14:41)
[2021-11-30 16:00] VITALS: BP 135/72
[2021-11-30] MEDS: DAKINS FULL STRENGTH (0.5%) 480 ML BOTTLE TOP SCH (17:00)
--- NOTE | 2021-11-30 17:00 | NUR ---
rn note called pharmacy to bring up Dakins solution. said they would bring it up, but not in patient casette or patient room.will followup Addendum: 11/30/21 at 1704 by GAYATRI MISTRY RN called pharmacy said they dont have Dakins 0.125, pharmacy said they would have more tomorrow morning
--- NOTE | 2021-11-30 17:00 | NUR ---
rn note called dietary office to bring up prosource said they would bring it up. not in the nutrition room
--- NOTE | 2021-11-30 17:22 | NUR ---
RN NOTE pt has poor appetite. needs encouragement from nursing staff to eat.educated the benefits of nutrition and healing affect.pt verbalized understanding
--- NOTE | 2021-11-30 19:30 | NUR ---
MS RN OPENING NOTE RECEIVED PATIENT IN BED ASLEEP, EASILY AROUSABLE, A/OX4.ABLE TO MAKE NEEDS KNOWN. ON RA TOLERATING WELL, NO S/S OF ACUTE DISTRESS, IV ACCESS ON MANISHA AND ABDIFATAH MIDLINE, RUNNING NS@150ML/HR. PATIENT HAS RLE BANDAGES COVERING WOUNDS DOCUMENTED IN CHART WITH PHOTOS. PT ABLE TO MAKE NEEDS KNOWN. ALL SAFETY MEASURES IN PLACE. BED IN LOWEST POSITION AND LOCKED. BED RAILS UP X2, CALL LIGHT WITH IN REACH BED ALARM ON. WILL CONTINUE TO MONITOR THROUGHOUT SHIFT.
--- NOTE | 2021-11-30 19:47 | NUR ---
RN OPENING NOTES PT ALERT AND ORIENTED X4.PT TOLERATING O2 ON ROOM AIR AT 98&. PT IS MED SURG STATUS.PT IS CONTACT ISOLATION PRECAUTIONS DUE TO R LOWER EXTREMITY WOUND INFECTED AND CELLULITIS.ALL NEEDS MET. PT DID NOT WOUND TO BE CHANGED AT THIS TIME. PT HAS R UA AND L UA MIDLINE. RUNNING NORMAL SALINE AT 150 CC/HR ALL SAFETY MEASURES IN PLACE. CALL LIGHT WITHIN REACH. BED LOCKED AT LOWEST POSITION. BEDSIDE TABLE NEXT TO PATIENTS. SIDE RAILS UP X2.
[2021-11-30 20:00] VITALS: BP 151/69
[2021-12-01 04:00] VITALS: BP 143/73
[2021-12-01] MEDS: IV NS 0.9% 1,000 ML IV PRN ×2 (04:43→20:35)
--- NOTE | 2021-12-01 05:15 | NUR ---
RN NOTE PATIENT REFUSED BED BATH.
[2021-12-01] MEDS: CLINDAMYCIN 900 MG in IV D5W 50 ML IV SCH ×3 (05:36→20:35)
[2021-12-01 06:26] LABS: BASOPHILS # (AUTO) 0.1 K/uL (0.0-0.2); BASOPHILS % (AUTO) 0.8 % (0.0-2.0); EOSINOPHILS % (AUTO) 3.8 % (0.0-6.0); HEMATOCRIT 23 % (39-51); HEMOGLOBIN 7.7 g/dL (13.5-17.5); LYMPHOCYTES # (AUTO) 1.2 K/uL (0.8-4.8); LYMPHOCYTES % (AUTO) 16.3 % (20.0-44.0); MEAN CORPUSCULAR HGB CONC 33 g/dl (31.0-36.0); MEAN CORPUSCULAR VOLUME 73 fL (80-96); MONOCYTES # (AUTO) 0.7 K/uL (0.1-1.30); NEUTROPHILS # (AUTO) 5.1 K/uL (1.8-8.9); NEUTROPHILS % (AUTO) 70.1 % (43.0-81.0); PLATELET COUNT (AUTO) 256 K/uL (150-450); RED BLOOD CELL COUNT(AUTO) 3.19 MIL/uL (4.5-6.0); WHITE BLOOD COUNT (AUTO) 7.3 K/uL (4.3-11.0)
[2021-12-01 06:30] LABS: BILIRUBIN,TOTAL 0.3 mg/dL (0.2-1.0); CALCIUM, SERUM 7.7 mg/dL (8.5-10.1); CREATININE 0.7 mg/dL (0.6-1.3); MAGNESIUM 1.9 mg/dL (1.8-2.4); PHOSPHORUS 3.6 mg/dL (2.5-4.9); POTASSIUM 3.9 mmol/L (3.5-5.1)
[2021-12-01 06:33] LABS: ALBUMIN 1.1 g/dL (3.4-5.0)
--- NOTE | 2021-12-01 06:34 | NUR ---
RN NOTE CRITICAL LAB VALUE: ALBUMIN 1.1 FROM JUNE AT LAB
--- NOTE | 2021-12-01 07:03 | NUR ---
MS RN CLOSING NOTE PATIENT IN BED ASLEEP, EASILY AROUSABLE, A/OX4.ABLE TO MAKE NEEDS KNOWN. ON RA TOLERATING WELL, NO S/S OF ACUTE DISTRESS, IV ACCESS ON MANISHA AND ABDIFATAH MIDLINE, RUNNING NS@150ML/HR. PATIENT HAS RLE BANDAGES COVERING WOUNDS DOCUMENTED IN CHART WITH PHOTOS. PT ABLE TO MAKE NEEDS KNOWN. PT REFUSED BED BATH. CRITICAL LAB ENDORSED TO MORNING SHIFT. ALL DUE MEDS GIVEN. ALL SAFETY MEASURES IN PLACE. BED IN LOWEST POSITION AND LOCKED. BED RAILS UP X2, CALL LIGHT WITH IN REACH BED ALARM ON. WILL ENDORSE TO MORNING SHIFT.
--- NOTE | 2021-12-01 07:30 | NUR ---
RN OPENING NOTES PT ALERT AND ORIENTED X4.PT TOLERATING O2 ON ROOM AIR AT 97&. PT IS MED SURG STATUS.PT IS CONTACT ISOLATION PRECAUTIONS DUE TO R LOWER EXTREMITY WOUND INFECTED AND CELLULITIS.ALL NEEDS MET. PT HAS R UA AND L UA MIDLINE. RUNNING NORMAL SALINE AT 150 CC/HR ALL SAFETY MEASURES IN PLACE. CALL LIGHT WITHIN REACH. BED LOCKED AT LOWEST POSITION. BEDSIDE TABLE NEXT TO PATIENT. SIDE RAILS UP X2.
[2021-12-01 08:00] VITALS: BP 132/71
--- NOTE | 2021-12-01 08:44 | NUR ---
rn note notified dr. shabazz that pt albumin is 1.0 will followup
[2021-12-01] MEDS: PANTOPRAZOLE 40 MG TABLET.DR PO SCH (10:26)
[2021-12-01] MEDS: DICYCLOMINE HCL 10 MG CAPSULE PO SCH ×3 (10:26→16:07)
[2021-12-01] MEDS: PROSOURCE / PROSTAT (PYXIS) 30 ML UDC GT SCH ×3 (10:27→16:07)
[2021-12-01] MEDS: CEFEPIME 2 GM in IV D5W 100 ML IV SCH ×2 (10:28→21:29)
[2021-12-01] MEDS: THERAHONEY GEL 1.5 OZ TUBE TP SCH (10:56)
[2021-12-01] MEDS: ENSURE ENLIVE 237 ML LIQUID (VANILLA) PO SCH (15:48)
[2021-12-01 16:00] VITALS: BP 136/70
[2021-12-01] MEDS: DAKINS FULL STRENGTH (0.5%) 480 ML BOTTLE TOP SCH (16:06)
[2021-12-01] MEDS: DAKINS QUARTER STRENGTH (0.125%) 480 ML BOTTLE TOP SCH (16:07)
--- NOTE | 2021-12-01 18:00 | NUR ---
rn note patient refuses wound care.educated the patient that right lower wound dressing needs to be changed and the importance of it. patient still refused and asked for provider enrollment specialist rn to change the wound.
--- NOTE | 2021-12-01 19:19 | NUR ---
MS RN OPENING NOTE RECEIVED PATIENT IN BED AWAKE, A/OX4.ABLE TO MAKE NEEDS KNOWN. ON RA TOLERATING WELL, NO S/S OF ACUTE DISTRESS, IV ACCESS ON MANISHA AND ABDIFATAH MIDLINE, RUNNING NS@150ML/HR. PATIENT HAS RLE BANDAGES COVERING WOUNDS DOCUMENTED IN CHART WITH PHOTOS. PT ABLE TO MAKE NEEDS KNOWN. ALL SAFETY MEASURES IN PLACE. BED IN LOWEST POSITION AND LOCKED. BED RAILS UP X2, CALL LIGHT WITH IN REACH BED ALARM ON. WILL CONTINUE TO MONITOR THROUGHOUT SHIFT.
--- NOTE | 2021-12-01 19:48 | NUR ---
RN CLOSING NOTE PT ALERT AND ORIENTED X4.PT TOLERATING O2 ON ROOM AIR AT 98&. ABLE TO MAKE NEEDS KNOWN AND VERBALLY RESPONSIVE.PT IS MED SURG STATUS.PT IS CONTACT ISOLATION PRECAUTIONS DUE TO R LOWER EXTREMITY WOUND INFECTED AND CELLULITIS.ALL NEEDS MET. PT DID NOT WOUND TO BE CHANGED AT THIS TIME.PROVIDED EDUCATION ON THE IMPORTANCE OF CHANGING THE DRESSING STILL REFUSED. PT HAS R UA AND L UA MIDLINE. RUNNING NORMAL SALINE AT 150 CC/HR ALL SAFETY MEASURES IN PLACE. CALL LIGHT WITHIN REACH. BED LOCKED AT LOWEST POSITION. BEDSIDE TABLE NEXT TO PATIENTS. SIDE RAILS UP X2.
[2021-12-01 20:00] VITALS: BP 139/80
[2021-12-02 04:00] VITALS: BP 110/68
[2021-12-02] MEDS: CLINDAMYCIN 900 MG in IV D5W 50 ML IV SCH ×3 (04:19→20:38)
--- NOTE | 2021-12-02 05:55 | NUR ---
RN NOTE WOUND TREATMENT COMPLETED
--- NOTE | 2021-12-02 07:01 | NUR ---
MS RN CLOSING NOTE PATIENT IN BED ASLEEP, EASILY AROUSABLE, A/OX4.ABLE TO MAKE NEEDS KNOWN. ON RA TOLERATING WELL, NO S/S OF ACUTE DISTRESS, IV ACCESS ON MANISHA AND ABDIFATAH MIDLINE, RUNNING NS@150ML/HR. PATIENT HAS RLE BANDAGES COVERING WOUNDS DOCUMENTED IN CHART WITH PHOTOS, WOUND TREATMENT COMPLETED. PT ABLE TO MAKE NEEDS KNOWN. PT REFUSED BED BATH. OUTPUT OF 1900ML VIA URINAL. ALL DUE MEDS GIVEN. ALL SAFETY MEASURES IN PLACE. BED IN LOWEST POSITION AND LOCKED. BED RAILS UP X2, CALL LIGHT WITH IN REACH BED ALARM ON. WILL ENDORSE TO MORNING SHIFT.
[2021-12-02 08:00] VITALS: BP 146/79
--- NOTE | 2021-12-02 08:00 | NUR ---
MS RN NOTE PATIENT IN BED ,ALL NEEDS ATTENDED, ALERT, ORIENTED, ON RA NO SOB NOTED AT THIS TIME, RT LE WITH DRESSING INTACT , RT UPPER ARM MID LINE IN PLACE , ON IVF ORDERED , BED IN LOWEST AND LOCKED POSITION, CALL LIGHT WITHIN REACH , SAFETY MEASURE PROVIDED Addendum: 12/02/21 at 1153 by RONNIE MOYER RN RECEIVED PATENT WITH RT UPPER ARM AND LT UPPER ARM WITH MID LINE , BOTH LINES CHECKED AND FLUSHED WELL KEEP CLEAN DRY
[2021-12-02] MEDS: PANTOPRAZOLE 40 MG TABLET.DR PO SCH (09:21)
[2021-12-02] MEDS: PROSOURCE / PROSTAT (PYXIS) 30 ML UDC GT SCH ×3 (09:21→16:16)
[2021-12-02] MEDS: DICYCLOMINE HCL 10 MG CAPSULE PO SCH ×3 (09:21→16:15)
[2021-12-02] MEDS: ENSURE ENLIVE 237 ML LIQUID (VANILLA) PO SCH (09:21)
[2021-12-02] MEDS: CEFEPIME 2 GM in IV D5W 100 ML IV SCH ×2 (09:21→21:19)
[2021-12-02] MEDS: IV NS 0.9% 1,000 ML IV PRN ×2 (09:22→17:33)
[2021-12-02] MEDS: DAKINS FULL STRENGTH (0.5%) 480 ML BOTTLE TOP SCH (09:53)
[2021-12-02] MEDS: DAKINS QUARTER STRENGTH (0.125%) 480 ML BOTTLE TOP SCH (09:53)
[2021-12-02] MEDS: THERAHONEY GEL 1.5 OZ TUBE TP SCH (09:54)
--- NOTE | 2021-12-02 11:00 | NUR ---
ms rn note rounds made ,all needs attended, cont on ivf as ordered ,not in distress
--- NOTE | 2021-12-02 13:30 | NUR ---
MS RN NOTE HAVING LUNCH,ALL NEEDS ATTENDED ATE 25% OF DIET ,CALL LIGHT WITHIN REACH
[2021-12-02 14:00] VITALS: BP 152/79
[2021-12-02 16:00] VITALS: BP 152/79
--- NOTE | 2021-12-02 17:31 | NUR ---
MS RN NOTE ROUNDS MADE , MADE A BM KEEP ,CLEAN DRY , CALL LIGHT WITHIN REACH , WILL CONT TO MONITOR CLOSELY
--- NOTE | 2021-12-02 18:16 | NUR ---
RN NOTES PATIENT C/O OF PAIN ON MANISHA MIDLINE WHEN FLUSHING, INFORMED DR. SURY Miller, WITH ORDER TO DO ULTRASOUND OF THE MANISHA, NOTED AND CARRIED OUT, WILL CONTINUE PLAN OF CARE.
--- NOTE | 2021-12-02 18:18 | NUR ---
RN CLOSING NOTED PATIENT ALERT AND VERBALLY RESPONSIVE, NO SOB NOTED, RESPIRATION EVEN AND UNLABORED, DENIES ANY PAIN. ON RA 02 SAT 99%. ABDIFATAH MIDLINE NOTED PATENT AND INTACT, FLUSHES WELL, INFUSING WITH 0.9 NS @150ML/HR. CALL LIGHT WITHIN REACH. BED IN LOWEST POSITION. LLE DRESSING NOTED C/D/I. WILL ENDORSE TO MANAGER INSTRUMENTATION NURSE FOR DMITRIY.
--- NOTE | 2021-12-02 19:11 | NUR ---
RN NOTES CALLED XRAY TO INFORMED THE STAT ULTRASOUND, PER DIVE SUPERVISOR THEY WILL COME SOON, ENDORSE TO CEMENT CONTRACTOR NURSE.
[2021-12-02 20:00] VITALS: BP 135/68
--- NOTE | 2021-12-02 20:00 | NUR ---
MS RN NOTE PT IN BED ASLEEP, EASILY AROUSABLE NO DISTRESS OR DISCOMFORT NOTED. DENIES PAIN. IVF NS 150 ML/HR, NO S/S OF INFILTRATION NOTED. KEPT HIM DRY AND CLEAN. ALL NEEDS ATTENDED. WOUND DRESSING I/C/D. KEPT THE LOWER EXT ELEVATED. VSS. CONTINUE TO MONITOR HIM.
--- NOTE | 2021-12-02 20:20 | NUR ---
2019 Critical venous duplex study left upper extremity result, positive superficial thrombus cephalic vein relayed to VANGIE Argueta with no order made.
[2021-12-03 04:00] VITALS: BP 137/70
[2021-12-03] MEDS: IV NS 0.9% 1,000 ML IV PRN ×2 (04:30→21:54)
[2021-12-03] MEDS: CLINDAMYCIN 900 MG in IV D5W 50 ML IV SCH (04:32)
--- NOTE | 2021-12-03 06:40 | NUR ---
DYE REEL OPERATOR NOTE PT IN BED ASLEEP. NO DISTRESS OR DISCOMFORT NOTED, NO S/S OF PAIN NOTED. IVF NS INFUSING AT 150 ML/HR, NO S/S INFILTRATION NOTED. KEPT HER DRY AND CLEAN. SIDE RAILS UP X 2 WILL ENDORSE TO DAY SHIFT NURSE FOR CONTINUE TO CARE.
--- NOTE | 2021-12-03 07:48 | NUR ---
RN NOTE PT RECEIVED RESTING IN BED, RESPONSIVE TO STIMULI. IN RA, NO SOB OR RESPI DISTRESS NOTED. WITH IV ACCESS ON ABDIFATAH MIDLINE IN PLACE WITH IVF NS@150/HR TOLERATING WELL. NO COMPLAINTS OF PAIN AND DISCOMFORT.. WILL CONTINUE TO MONITOR.
[2021-12-03] MEDS: PANTOPRAZOLE 40 MG TABLET.DR PO SCH (08:12)
[2021-12-03] MEDS: DICYCLOMINE HCL 10 MG CAPSULE PO SCH ×2 (08:12→13:42)
[2021-12-03] MEDS: ENSURE ENLIVE 237 ML LIQUID (VANILLA) PO SCH (08:12)
[2021-12-03] MEDS: CEFEPIME 2 GM in IV D5W 100 ML IV SCH ×2 (08:12→21:51)
[2021-12-03] MEDS: DAKINS QUARTER STRENGTH (0.125%) 480 ML BOTTLE TOP SCH (09:33)
[2021-12-03] MEDS: DAKINS FULL STRENGTH (0.5%) 480 ML BOTTLE TOP SCH (09:33)
[2021-12-03] MEDS: THERAHONEY GEL 1.5 OZ TUBE TP SCH (09:33)
[2021-12-03] MEDS: PROSOURCE / PROSTAT (PYXIS) 30 ML UDC GT SCH ×2 (10:25→13:42)
--- NOTE | 2021-12-03 15:54 | NUR ---
RN NOTE PT LEFT FACILITY VIA AMBULANCE. V/S STABLE. WOUND CARE DONE. D/C INSTRUCTIONS GIVEN TO EMT. PT TO CONT IV ABX FOR WOUND INFECTION (CELLULITIS)
--- NOTE | 2021-12-03 19:10 | NUR ---
MED SURGE NOTE: PATIENT RETURNED. ALERT AND ORIENTED X4. UNLABORED BREATHING. LEFT AND RIGHT ARM MIDLINES PATENT. BILATERAL LOWER EXTREMITIES WITH CLEAN DRESSING. SACRAL AND RIGHT BUTTOCK DTI WITH CLEAN DRESSING. DENIES PAIN OR DISCOMFORT. REPOSITIONED WITH PILLOWS. HOB ELEVATED SEMI-FOWLERS POSITION. BED IN LOW POSITION, LOCKED, EXIT ALARM ON. BILATERAL HALF SIDE RAILS UP X2. CALL LIGHT IN REACH. NO S/S OF PAIN.
--- NOTE | 2021-12-03 19:17 | NUR ---
patient returned by paramedics ,address was a motel and cannot accept patient per mental health case manager over there..per nursing sup ANDRE ok to place back pt. same room and notify endorsed to night charge nurse BHAVIK.LILIA TODD NOTIFIED.
--- NOTE | 2021-12-03 19:34 | NUR ---
MS RN NOTE INFORMED DNP LARISSA THAT PT CAME BACK TO SAME ROOM AND BED AFTER DISCHARGED DUE TO ADDRESS WAS OF SOME HOTEL AND PT ON IV ATB'S.
[2021-12-03 20:00] VITALS: BP 110/63
[2021-12-04 04:00] VITALS: BP 128/65
[2021-12-04] MEDS: IV NS 0.9% 1,000 ML IV PRN ×2 (05:47→19:46)
--- NOTE | 2021-12-04 06:50 | NUR ---
MED SURGE CLOSING NOTE: ALERT AND ORIENTED X4. UNLABORED BREATHING. LEFT AND RIGHT ARM MIDLINES PATENT. BILATERAL LOWER EXTREMITIES WITH CLEAN DRESSING. SACRAL AND RIGHT BUTTOCK DTI WITH CLEAN DRESSING. DENIES PAIN OR DISCOMFORT. WOUND CARE DONE TO SACRAL AND BUTTOCKS. REFUSED WOUND CARE TO BLE RISKS VS BENEFITS EXPLAINED. OFFERED TIMES THREE VERBALIZED UNDERSTANDING AND STILL REFUSEED. REPOSITIONED WITH PILLOWS. ABLE TO SELF TURN AND REPOSITION AND PULL HIMSELF UP IN BED. SAFETY PRECAUTIONS MAINTAINED AT ALL TIMES. HOB ELEVATED SEMI-FOWLERS POSITION. BED IN LOW POSITION, LOCKED, EXIT ALARM ON. BILATERAL HALF SIDE RAILS UP X2. CALL LIGHT IN REACH. NO S/S OF PAIN.
[2021-12-04 08:00] VITALS: BP 139/72
[2021-12-04] MEDS: THERAHONEY GEL 1.5 OZ TUBE TP SCH (09:00)
[2021-12-04] MEDS: ENSURE ENLIVE 237 ML LIQUID (VANILLA) PO SCH (09:00)
[2021-12-04] MEDS: DAKINS FULL STRENGTH (0.5%) 480 ML BOTTLE TOP SCH (09:00)
[2021-12-04] MEDS: DAKINS QUARTER STRENGTH (0.125%) 480 ML BOTTLE TOP SCH (09:00)
[2021-12-04] MEDS: PANTOPRAZOLE 40 MG TABLET.DR PO SCH (11:32)
[2021-12-04] MEDS: CEFEPIME 2 GM in IV D5W 100 ML IV SCH ×2 (11:32→21:00)
[2021-12-04 16:00] VITALS: BP 124/75
--- NOTE | 2021-12-04 18:48 | NUR ---
RN NOTE PATIENT IS IN PAIN BUT IS REFUSING ANY PAIN MEDICATION
--- NOTE | 2021-12-04 19:48 | NUR ---
RN CLOSING NOTE ALERT AND ORIENTED X4. UNLABORED BREATHING. LEFT AND RIGHT ARM MIDLINES PATENT. BILATERAL LOWER EXTREMITIES WITH CLEAN DRESSING. SACRAL AND RIGHT BUTTOCK DTI WITH CLEAN DRESSING. PT REFUSED WOUND CARE TO LEFT LEG WOUND CARE , EXPLAINED RISKS VS BENEFITS. OFFERED PAIN MEDICATION X3 AND STILL REFUSED. REPOSITIONED WITH PILLOWS. ALL SAFETY IN PLACE: HOB ELEVATED SEMI-FOWLERS POSITION. BED IN LOW POSITION, LOCKED, EXIT ALARM ON. BILATERAL HALF SIDE RAILS UP X2. CALL LIGHT WITHIN REACH. WILL ENDORSE CONTINUITY OF CARE TO NIGHTSHIFT NURSE.
[2021-12-04 22:00] VITALS: BP 127/72
[2021-12-05] VITALS: BP 127/72
[2021-12-05] MEDS: IV NS 0.9% 1,000 ML IV PRN ×3 (02:56→19:31)
--- NOTE | 2021-12-05 06:42 | NUR ---
PREVENTATIVE MAINTENANCE TECHNICIAN NOTE PT IN BED ASLEEP. NO DISTRESS OR DISCOMFORT NOTED, NO S/S OF PAIN NOTED. IVF NS INFUSING AT 150 ML/HR, NO S/S INFILTRATION NOTED. KEPT HER DRY AND CLEAN. SIDE RAILS UP X 2 WILL ENDORSE TO DAY SHIFT NURSE FOR CONTINUE TO CARE.
[2021-12-05 08:00] VITALS: BP 137/79
[2021-12-05] MEDS: CEFEPIME 2 GM in IV D5W 100 ML IV SCH ×2 (08:55→21:06)
[2021-12-05] MEDS: PANTOPRAZOLE 40 MG TABLET.DR PO SCH (08:55)
[2021-12-05] MEDS: ENSURE ENLIVE 237 ML LIQUID (VANILLA) PO SCH (09:47)
[2021-12-05] MEDS: DAKINS FULL STRENGTH (0.5%) 480 ML BOTTLE TOP SCH (09:47)
[2021-12-05] MEDS: DAKINS QUARTER STRENGTH (0.125%) 480 ML BOTTLE TOP SCH (09:48)
[2021-12-05] MEDS: THERAHONEY GEL 1.5 OZ TUBE TP SCH (09:48)
[2021-12-05 16:00] VITALS: BP 131/67
[2021-12-05 20:00] VITALS: BP 128/60
--- NOTE | 2021-12-05 21:52 | NUR ---
RN NOTES RECEIVED PT FOR CONTINUITY OF CARE. PATIENT A/OX4 IN NO S/SX OF ACUTE DISTRESS AT THIS TIME; CURRENTLY ON ROOM AIR; WITH 02 SAT >95% AT THIS TIME.WITH IV ACCESS ON L AND R UA MIDLINE BOTH PATENT, INTACT AND FLUSHING WELL. WITH RUNNING IV FLUID ORDERED. WILL ENSURE SAFETY MEASURES WITHIN THE SHIFT. PATIENT BED ALARM IS ON. HEAD OF BED ELEVATED. BED IS LOCKED, IN LOWEST POSITION AND SIDE RAILS UP. CALL LIGHT WITHIN REACH OF THE PATIENT. WILL CONTINUE TO MONITOR AND REASSESS FOR ANY CHANGES AND WILL CARRY OUT ANY ONGOING AND ACTIVE MD ORDER. Addendum: 12/06/21 at 0642 by ADRIANA HEATH RN RECEIVED @1920
[2021-12-06] MEDS: IV NS 0.9% 1,000 ML IV PRN ×2 (03:24→09:43)
[2021-12-06 04:00] VITALS: BP 112/56
--- NOTE | 2021-12-06 04:00 | NUR ---
RN NOTES PATIENT REMAINED TO BE IN NO SIGNS OF ACUTE RESPIRATORY DISTRESS , SAFE ENVIRONMENT MAINTAINED FOR PT. AM PATIENT CARE ASSISTANCE RENDERED. WILL CONTINUE TO MONITOR AND REASSESS FOR ANY CHANGES THROUGHOUT THE SHIFT.
--- NOTE | 2021-12-06 06:41 | NUR ---
RN CLOSING NOTE: PATIENT REMAINS IN ROOM IN NO SIGNS OF RESPIRATORY DISTRESS, PATIENT STILL ROOM AIR; TOLERATING WELL SATURATING @ >95% SP02. SAFETY MEASURES IMPLEMENTED, BED IN LOWEST POSITION, LOCKED, SIDE RAILS UP, CALL LIGHT WITHIN REACH. ALL NEEDS AND ORDERS ADDRESSED DURING THE SHIFT. IV ACCESS MAINTAINED INTACT, SECURED AND FLUSHING WELL. ALL DUE MEDS GIVEN ORDERED & SCHEDULED ; PATIENT TOLERATED WELL. PATIENT KEPT CLEAN AND COMFORTABLE WITHIN THE SHIFT. PATIENT ENDORSED TO INCOMING SHIFT RN WITH STABLE VITAL SIGN AND FOR CONTINUITY OF CARE.
--- NOTE | 2021-12-06 07:10 | NUR ---
RN OPENING NOTE RECEIVED PATIENT IN BED. NO SIGNS OF RESPIRATORY DISTRESS, PATIENT BREATHING ON ROOM AIR; TOLERATING WELL NO S/S OF SOB OR DISTRESS. ALL SAFETY MEASURES IN PLACE, BED IN LOWEST POSITION, AND LOCKED, SIDE RAILS UP, CALL LIGHT WITHIN REACH. ABDIFATAH IV ACCESS MAINTAINED INTACT AND FLUSHING WELL. WILL CONTINUE TO MONITOR THROUGHOUT SHIFT
[2021-12-06] MEDS: DAKINS QUARTER STRENGTH (0.125%) 480 ML BOTTLE TOP SCH (09:39)
[2021-12-06] MEDS: DAKINS FULL STRENGTH (0.5%) 480 ML BOTTLE TOP SCH (09:39)
[2021-12-06] MEDS: THERAHONEY GEL 1.5 OZ TUBE TP SCH (09:39)
[2021-12-06] MEDS: ENSURE ENLIVE 237 ML LIQUID (VANILLA) PO SCH (09:42)
[2021-12-06] MEDS: PANTOPRAZOLE 40 MG TABLET.DR PO SCH (09:42)
[2021-12-06] MEDS: CEFEPIME 2 GM in IV D5W 100 ML IV SCH ×2 (09:42→20:58)
[2021-12-06 12:00] VITALS: BP 132/73
[2021-12-06] MEDS: IV NS 0.9% 1,000 ML IV SCH (18:57)
--- NOTE | 2021-12-06 19:45 | NUR ---
RN OPENING NOTES RECEIVED PT IN BED AWAKE, WATCHING TV. AOx4, ABLE TO MAKE NEEDS KNOWN. ON RA AND TOLERATING WELL. NO SOB NOTED. NO S/SX OF RESPIRATORY DISTRESS NOTED. IV ACCESS IN ABDIFATAH MIDLINE AND MANISHA MIDLINE RUNNING NS @ 75 ML/HR.. SAFETY PRECAUTIONS IN PLACE: BED IN LOWEST, LOCKED POSITION, SIDERAILS UPx2, AND BRAKES ON. TABLE AND CALL LIGHT WITHIN REACH. ALL NEEDS MET AT THIS TIME.
[2021-12-06 20:00] VITALS: BP 136/68
[2021-12-07 04:00] VITALS: BP 128/62
[2021-12-07] MEDS: IV NS 0.9% 1,000 ML IV SCH ×2 (05:21→18:53)
--- NOTE | 2021-12-07 06:40 | NUR ---
RN CLOSING NOTES PT IN BED ASLEEP, AWAKENS TO VERBAL STIMULI. AOx4, ABLE TO MAKE NEEDS KNOWN. ON RA AND TOLERATING WELL. NO SOB NOTED. NO S/SX OF RESPIRATORY DISTRESS NOTED. IV ACCESS IN ABDIFATAH MIDLINE AND MANISHA MIDLINE RUNNING NS @ 75 ML/HR. ALL ORDERS CARRIED OUT. ALL NEEDS MET. PT REFUSED TO BE CHANGED AND REFUSED WOUND DRESSING CHANGE. SAFETY PRECAUTIONS IN PLACE: BED IN LOWEST, LOCKED POSITION, SIDERAILS UPx2, AND BRAKES ON. TABLE AND CALL LIGHT WITHIN REACH. WILL ENDORSE TO ONCOMING SHIFT FOR DMITRIY.
--- NOTE | 2021-12-07 07:30 | NUR ---
RN OPENING NOTES RECEIVED PT IN BED AWAKE. AOx4, ABLE TO MAKE NEEDS KNOWN. ON RA AND TOLERATING WELL. NO SOB NOTED. NO S/SX OF RESPIRATORY DISTRESS NOTED. IV ACCESS IN ABDIFATAH MIDLINE AND MANISHA MIDLINE RUNNING NS @ 75 ML/HR.ALL SAFETY PRECAUTIONS IN PLACE: BED IN LOWEST, LOCKED POSITION, SIDE RAILS UPx2, AND BRAKES ON. TABLE AND CALL LIGHT WITHIN REACH. ALL NEEDS MET AT THIS TIME.WILL CONTINUE TO MONITOR CLOSELY.
[2021-12-07] MEDS: PANTOPRAZOLE 40 MG TABLET.DR PO SCH (09:47)
[2021-12-07] MEDS: PROSOURCE / PROSTAT (PYXIS) 30 ML UDC GT SCH ×3 (09:47→16:17)
[2021-12-07] MEDS: CEFEPIME 2 GM in IV D5W 100 ML IV SCH ×2 (09:47→21:27)
[2021-12-07] MEDS: DICYCLOMINE HCL 10 MG CAPSULE PO SCH ×3 (09:47→16:17)
[2021-12-07] MEDS: DAKINS QUARTER STRENGTH (0.125%) 480 ML BOTTLE TOP SCH (09:59)
[2021-12-07] MEDS: THERAHONEY GEL 1.5 OZ TUBE TP SCH (09:59)
[2021-12-07] MEDS: DAKINS FULL STRENGTH (0.5%) 480 ML BOTTLE TOP SCH (10:07)
[2021-12-07 12:00] VITALS: BP 116/57
--- NOTE | 2021-12-07 18:50 | NUR ---
MS RN CLOSING NOTES PT IN BED AWAKE. AOx4, ABLE TO MAKE NEEDS KNOWN. ON RA AND TOLERATING WELL. NO SOB NOTED. NO S/SX OF RESPIRATORY DISTRESS NOTED. IV ACCESS IN ABIDFATAH MIDLINE AND MANISHA MIDLINE RUNNING NS @ 75 ML/HR. ALL DUE MEDS GIVEN ORDERED. ALL DRESSING FOR WOUNDS AND TREATMENTS CHANGED.ALL SAFETY PRECAUTIONS IN PLACE: BED IN LOWEST, LOCKED POSITION, SIDE RAILS UPx2, AND BRAKES ON. TABLE AND CALL LIGHT WITHIN REACH. ALL NEEDS MET AT THIS TIME.WILL ENDORSE FOR DMITRIY.
[2021-12-07 20:00] VITALS: BP 129/69
[2021-12-08 04:00] VITALS: BP 119/67
--- NOTE | 2021-12-08 07:00 | NUR ---
END OF SHIFT, PATIENT IN BED, ASLEEP AT THIS TIME, AT ROOM AIR, NO SOB/NO SIGNS OF ACUTE DISTRESS NOTED, REMAINED STABLE DURING THE NIGHT, CONT ON IV ANTIBIOTICS, OTHERWISE NO SIGNIFICANT CHANGE IN CONDITION, AWAITING FOR PLACE, ALL SAFETY MEASURE MAINTAINED, BED IN LOWEST AND LOCKED POSITION, SIDE RAILS UP X2, CALL LIGHT PLACED WITHIN EASY REACH, WILL ENDORSE CONTINUITY OF CARE TO ONCOMING NURSE.
[2021-12-08] MEDS: PROSOURCE / PROSTAT (PYXIS) 30 ML UDC GT SCH ×3 (08:43→16:19)
[2021-12-08] MEDS: CEFEPIME 2 GM in IV D5W 100 ML IV SCH ×2 (08:43→20:31)
[2021-12-08] MEDS: PANTOPRAZOLE 40 MG TABLET.DR PO SCH (08:43)
[2021-12-08] MEDS: THERAHONEY GEL 1.5 OZ TUBE TP SCH (08:44)
[2021-12-08] MEDS: DAKINS FULL STRENGTH (0.5%) 480 ML BOTTLE TOP SCH (08:44)
[2021-12-08] MEDS: DICYCLOMINE HCL 10 MG CAPSULE PO SCH ×3 (08:44→16:21)
[2021-12-08] MEDS: DAKINS QUARTER STRENGTH (0.125%) 480 ML BOTTLE TOP SCH (08:44)
--- NOTE | 2021-12-08 09:00 | NUR ---
RN NOTE BAND NAILERPENG CALHOUN HAS THIS PATIENT, SINCE HE DOES NOT HAVE LOGIN INFORMATION CHARGE NURSE SOON REQUESTED ME TO HELP HIM WITH MEDICATION DRAM FROM MED ROOM. ALL IV AND PO MEDICATION TAKEN UNDER MY NAME AND GIVEN TO PATIENT BY PENG CALHOUN.
--- NOTE | 2021-12-08 10:44 | NUR ---
WOUND CARE: RECEIVED REQUEST FOR DRESSING CHANGE ASSISTANCE FOR RT LOWER LEG WOUND. PT BECAME ANGRY AND WAS CURSING AND ALTERNATELY CRYING DURING DRESSING REMOVAL. RT LOWER LEG HAS NECROTIC TISSUE WHICH IS YELLOW/BROWN AND BLACK WITH VERY SMALL AREAS OF PINK TISSUE. FOUL ODOR NOTED WITH PURULENT DRAINAGE FROM MOIST NECROTIC TISSUE. DISCUSSED WITH DR IGNACIO AND NEW WOUND ORDERS RECEIVED. DISCUSSED WITH NURSING STAFF. PT REFUSED DRESSING CHANGE OF SACRAL/RT BUTTOCK WOUNDS.
[2021-12-08 12:00] VITALS: BP 121/61
[2021-12-08] MEDS: IV NS 0.9% 1,000 ML IV PRN (15:08)
[2021-12-08 16:20] LABS: CALCIUM, SERUM 8.2 mg/dL (8.5-10.1); CREATININE 0.8 mg/dL (0.6-1.3); POTASSIUM 4.2 mmol/L (3.5-5.1)
--- NOTE | 2021-12-08 18:26 | NUR ---
MS RN CLOSING NOTES PT IN BED AWAKE. AOx4, ABLE TO MAKE NEEDS KNOWN. ON RA AND TOLERATING WELL. NO SOB NOTED. NO S/SX OF RESPIRATORY DISTRESS NOTED. IV ACCESS IN ABDIFATAH MIDLINE AND MANISHA MIDLINE RUNNING NS @ 75 ML/HR. ALL DUE MEDS GIVEN ORDERED. ALL DRESSING FOR WOUNDS AND TREATMENTS CHANGED.ALL SAFETY PRECAUTIONS IN PLACE: BED IN LOWEST, LOCKED POSITION, SIDE RAILS UPx2, AND BRAKES ON. TABLE AND CALL LIGHT WITHIN REACH. ALL NEEDS MET AT THIS TIME.WILL ENDORSE [employer] MANAGER TO FALLOW POC
--- NOTE | 2021-12-08 19:45 | NUR ---
MS RN OPENING NOTES RECEIVED PT IN BED AWAKE. AOX4, ABLE TO MAKE NEEDS KNOWN. ON RA TOLERATING WELL. NO SOB NOTED. NO S/SX OF RESPIRATORY DISTRESS NOTED. NO COMPLAINTS OF PAIN AT THIS TIME, IV ACCESS IN ABDIFATAH MIDLINE AND MANISHA MIDLINE RUNNING NS @ 50 ML/HR. SAFETY PRECAUTIONS IN PLACE: BED IN LOWEST AND LOCKED POSITION, SIDE RAILS UPX2, ALARM ON, TABLE AND CALL LIGHT WITHIN REACH. WILL CONTINUE TO MONITOR THROUGHOUT THE SHIFT.
[2021-12-08 20:00] VITALS: BP 135/53
[2021-12-09 04:00] VITALS: BP 135/67
--- NOTE | 2021-12-09 06:36 | NUR ---
MS RN CLOSING NOTES PT REMAINS IN BED AWAKE. A/OX4, ABLE TO MAKE NEEDS KNOWN. ON RA TOLERATING WELL SATING 98%. NO SOB NOTED. NO S/SX OF RESPIRATORY DISTRESS NOTED. IV ACCESS IN ABDIFATAH MIDLINE AND MANISHA MIDLINE RUNNING NS @ 55 ML/HR. ALL DUE MEDS GIVEN ORDERED. ALL SAFETY PRECAUTIONS IN PLACE: BED IN LOWEST, LOCKED POSITION, SIDE RAILS UPx2, ALARM ON. TABLE AND CALL LIGHT WITHIN REACH. ALL NEEDS ATTENDED. WILL ENDORSE TO AM SHIFT NURSE FOR CONTINUITY OF CARE.
[2021-12-09] MEDS: DAKINS QUARTER STRENGTH (0.125%) 480 ML BOTTLE TOP SCH (09:00)
[2021-12-09] MEDS: THERAHONEY GEL 1.5 OZ TUBE TP SCH (09:00)
[2021-12-09] MEDS: PROSOURCE / PROSTAT (PYXIS) 30 ML UDC GT SCH ×3 (09:00→16:16)
[2021-12-09] MEDS: PANTOPRAZOLE 40 MG TABLET.DR PO SCH (09:00)
[2021-12-09] MEDS: DICYCLOMINE HCL 10 MG CAPSULE PO SCH ×3 (09:00→16:16)
[2021-12-09] MEDS: CEFEPIME 2 GM in IV D5W 100 ML IV SCH ×2 (10:12→21:30)
[2021-12-09] MEDS: DAKINS FULL STRENGTH (0.5%) 480 ML BOTTLE TOP SCH (10:33)
[2021-12-09 12:00] VITALS: BP 135/67
[2021-12-09] MEDS: IV NS 0.9% 1,000 ML IV PRN (12:40)
--- NOTE | 2021-12-09 18:17 | NUR ---
RN NOTE PT RESTING IN BED, ROOM AIR. NOT IN RESPI DISTRESS. ALERT AND ORIENTED. WITH IV ACCESS ON ABDIFATAH AND MANISHA MIDLING IN PLACE. WITH IVF NS @ 50/HR. TOLERATING WELL. DUE MEDICATIONS GIVEN. AM/PNM CARE RENDERED. V/S STABLE. WILL CONTINUE TO MONITOR.
[2021-12-09 20:00] VITALS: BP 126/67
[2021-12-10 04:00] VITALS: BP 109/65
--- NOTE | 2021-12-10 06:51 | NUR ---
RN CLOSING NOTES PT REMAINS IN BED, AWAKE, A/OX4 AND VERBALLY RESPONSIVE. ON ROOM AIR AND PT TOLERATED WELL. O2 SAT 99%. BREATHING EVEN AND UNLABORED. IV ACCESS IN ABDIFATAH MIDLINE AND MANISHA MIDLINE, RUNNING NS @ 50 ML/HR. NO C/O PAIN OR DISCOMFORT. NO ACUTE DISTRESS. ALL DUE MEDS GIVEN ORDERED. ALL SAFETY MEASURES IN PLACE. BED IN LOWEST POSITION AND LOCKED. SIDE RAILS UPx2, BED ALARM ON. PLACE CALL LIGHT WITHIN REACH. WILL ENDORSE TO MORNING SHIFT NURSE.
[2021-12-10] MEDS: DICYCLOMINE HCL 10 MG CAPSULE PO SCH ×3 (09:11→16:08)
[2021-12-10] MEDS: CEFEPIME 2 GM in IV D5W 100 ML IV SCH ×2 (09:11→21:05)
[2021-12-10] MEDS: PANTOPRAZOLE 40 MG TABLET.DR PO SCH (09:12)
[2021-12-10] MEDS: THERAHONEY GEL 1.5 OZ TUBE TP SCH (09:14)
[2021-12-10] MEDS: DAKINS QUARTER STRENGTH (0.125%) 480 ML BOTTLE TOP SCH (09:14)
--- NOTE | 2021-12-10 09:30 | NUR ---
MS RN OPENING NOTES RECEIVED PT IN BED AWAKE. AOX4, ABLE TO MAKE NEEDS KNOWN. ON RA TOLERATING WELL. NO SOB NOTED. NO S/SX OF RESPIRATORY DISTRESS NOTED. NO COMPLAINTS OF PAIN AT THIS TIME, IV ACCESS IN ABDIFATAH MIDLINE AND MANISHA MIDLINE RUNNING NS @ 50 ML/HR. SAFETY PRECAUTIONS IN PLACE: BED IN LOWEST AND LOCKED POSITION, SIDE RAILS UPX2, ALARM ON, TABLE AND CALL LIGHT WITHIN REACH. WILL CONTINUE PLAN OF CARE.
[2021-12-10] MEDS: PROSOURCE / PROSTAT (PYXIS) 30 ML UDC GT SCH ×3 (09:43→17:34)
[2021-12-10] MEDS: DAKINS FULL STRENGTH (0.5%) 480 ML BOTTLE TOP SCH (10:31)
[2021-12-10 12:00] VITALS: BP 128/61
[2021-12-10] MEDS: IV NS 0.9% 1,000 ML IV PRN (16:05)
--- NOTE | 2021-12-10 17:57 | NUR ---
RN NOTES WOUND CARE RENDERED, NO BLEEDING NOTED. WILL CONTINUE PLAN OF CARE.
--- NOTE | 2021-12-10 18:41 | NUR ---
RN CLOSING NOTES PT REMAINS IN BED, AWAKE, A/OX4 AND VERBALLY RESPONSIVE. ON ROOM AIR AND PT TOLERATED WELL, NO SOB NOTED, BREATHING EVEN AND UNLABORED, NOT IN DISTRESS. IV ACCESS IN ABDIFATAH MIDLINE AND MANISHA MIDLINE, PATENT AND INTACT, RUNNING NS @ 50 ML/HR. NO C/O PAIN OR DISCOMFORT. ALL DUE MEDS GIVEN ORDERED. ALL SAFETY MEASURES IN PLACE. BED IN LOWEST POSITION AND LOCKED. SIDE RAILS UPx2, BED ALARM ON. PLACE CALL LIGHT WITHIN REACH. WILL ENDORSE TO BREWING DIRECTOR NURSE FOR DMITRIY.
--- NOTE | 2021-12-10 19:30 | NUR ---
PT IN BED, AWAKE, A/OX4 AND VERBALLY RESPONSIVE, ABLE TO MAKE NEEDS KNOWN. ON ROOM AIR, PT TOLERATING WELL, NO SOB NOTED, BREATHING EVEN AND UNLABORED, NOT IN DISTRESS. IV ACCESS IN ABDIFATAH MIDLINE AND MANISHA MIDLINE, ABDIFATAH ML INFUSING NS @ 50 ML/HR. ALL SAFETY MEASURES IN PLACE. HOB SLIGHTLY ELEVATED, BED IN LOWEST POSITION AND LOCKED. SIDE RAILS UPx2, BED ALARM ON. PLACE CALL LIGHT WITHIN REACH. WILL CONTINUE PLAN OF CARE.
[2021-12-10 20:00] VITALS: BP 111/56
[2021-12-10] MEDS: ZOLPIDEM TARTRATE 5 MG TABLET PO PRN (21:13)
[2021-12-11 04:00] VITALS: BP 130/70
--- NOTE | 2021-12-11 07:14 | NUR ---
PT ASLEEP IN BED, A/OX4, VERBALLY RESPONSIVE AND ABLE TO MAKE NEEDS KNOWN. ON ROOM AIR AND PT TOLERATED WELL, NO SOB NOTED, BREATHING EVEN AND UNLABORED, NOT IN DISTRESS. IV ACCESS IN ABDIFATAH MIDLINE AND MANISHA MIDLINE, PATENT AND INTACT, INFUSING NS @ 50 ML/HR. NO C/O PAIN OR DISCOMFORT. ALL DUE MEDS GIVEN ORDERED. ALL SAFETY MEASURES MAINTAINED. BED IN LOWEST POSITION AND LOCKED. SIDE RAILS UPx2, BED ALARM ON, CALL LIGHT WITHIN REACH. WILL ENDORSE TO NEXT SHIFT NURSE FOR DMITRIY.
--- NOTE | 2021-12-11 07:20 | NUR ---
RN OPENING NOTE PT IN BED, AWAKE, A/OX4 AND VERBALLY RESPONSIVE, ABLE TO MAKE NEEDS KNOWN. ON ROOM AIR TOLERATING AT 97%. NO SIGNS OF PAIN OR DISCOMFORT. IV ABDIFATAH MIDLINE AND MANISHA MIDLINE, ABDIFATAH ML INFUSING NS @ 50 ML/HR. ALL SAFETY MEASURES IN PLACE. BED IN LOWEST POSITION AND LOCKED. SIDE RAILS UPx2, BED ALARM ON. PLACE CALL LIGHT WITHIN REACH.
[2021-12-11 08:00] VITALS: BP 124/71
[2021-12-11] MEDS: DICYCLOMINE HCL 10 MG CAPSULE PO SCH ×2 (08:34→13:32)
[2021-12-11] MEDS: PANTOPRAZOLE 40 MG TABLET.DR PO SCH (08:34)
[2021-12-11] MEDS: CEFEPIME 2 GM in IV D5W 100 ML IV SCH ×2 (08:34→20:07)
[2021-12-11] MEDS: THERAHONEY GEL 1.5 OZ TUBE TP SCH (11:43)
[2021-12-11] MEDS: DAKINS FULL STRENGTH (0.5%) 480 ML BOTTLE TOP SCH (11:44)
[2021-12-11] MEDS: DAKINS QUARTER STRENGTH (0.125%) 480 ML BOTTLE TOP SCH (11:44)
[2021-12-11 12:00] VITALS: BP 124/61
[2021-12-11] MEDS: PROSOURCE / PROSTAT (PYXIS) 30 ML UDC GT SCH ×3 (13:31→18:36)
--- NOTE | 2021-12-11 19:30 | NUR ---
PT IN BED, AWAKE, A/OX4 AND VERBALLY RESPONSIVE, ABLE TO MAKE NEEDS KNOWN. ON ROOM AIR, PT TOLERATING WELL, NO SOB NOTED, BREATHING EVEN AND UNLABORED, NOT IN DISTRESS. IV ACCESS IN ABDIFATAH MIDLINE AND MANISHA MIDLINE. ALL SAFETY MEASURES IN PLACE. HOB SLIGHTLY ELEVATED, BED IN LOWEST POSITION AND LOCKED. SIDE RAILS UPx2, BED ALARM ON. PLACED CALL LIGHT WITHIN REACH. WILL CONTINUE PLAN OF CARE.
[2021-12-11 20:00] VITALS: BP 130/69
[2021-12-11] MEDS: IV NS 0.9% 1,000 ML IV PRN (20:08)
[2021-12-11] MEDS: ZOLPIDEM TARTRATE 5 MG TABLET PO PRN (20:08)
--- NOTE | 2021-12-11 20:14 | NUR ---
RN CLOSING NOTE PT IN BED. A/0 X4. ABLE TO MAKE NEEDS KNOWN. ON ROOM AIR AT 95%. ABDIFATAH MIDLINE AND MANISHA MIDLINE. NO SIGNS OF PAIN OR DISCOMFORT. ALL SAFETY MEASURES IN PLACE. HOB ELEVATED.BED LOCKED AT LOWEST POSITION. SIDE RAILS UP X2. BED ALARM ON PLACE. BEDSIDE TABLE WITHIN REACH. PT REFUSED WOUND CARE. EDUCATED PT ON BENEFITS.PT STILL REFUSED. PT WANTS CRYPTOGRAPHIC CENTER SPECIALIST RN TO CHANGE WOUND DRESSING ENDORSED TO CRYPTOGRAPHIC CENTER SPECIALIST RN
[2021-12-12 04:00] VITALS: BP 132/67
--- NOTE | 2021-12-12 07:05 | NUR ---
PT ASLEEP RESTING COMFORTABLY, A/OX4 AND VERBALLY RESPONSIVE, ABLE TO MAKE NEEDS KNOWN. ON ROOM AIR, PT TOLERATING WELL, NO SOB NOTED, BREATHING EVEN AND UNLABORED, NOT IN DISTRESS. IV ACCESS IN ABDIFATAH MIDLINE AND MANISHA MIDLINE. ALL SAFETY MEASURES IN PLACE. HOB SLIGHTLY ELEVATED, BED IN LOWEST POSITION AND LOCKED. SIDE RAILS UPx2, BED ALARM ON. PLACED CALL LIGHT WITHIN REACH. WILL ENDORSE TO NEXT NURSE ON DUTY FOR CONTINUITY OF CARE.
--- NOTE | 2021-12-12 07:55 | NUR ---
RN OPENING NOTE PT ASLEEP RESTING COMFORTABLY, A/OX4 AND VERBALLY RESPONSIVE, ABLE TO MAKE NEEDS KNOWN. ON ROOM AIR, PT TOLERATING WELL ABOVE 96%, NO SOB NOTED, BREATHING EVEN AND UNLABORED, NOT IN DISTRESS. IV ACCESS IN ABDIFATAH MIDLINE AND MANISHA MIDLINE. ALL SAFETY MEASURES IN PLACE. HOB SLIGHTLY ELEVATED, ALL SAFETY MEASURES IN PLACE. BED IN LOWEST POSITION AND LOCKED. SIDE RAILS UPx2, BED ALARM ON. CALL LIGHT AND BEDSIDE TABLE WITHIN REACH
[2021-12-12 08:00] VITALS: BP 112/58
[2021-12-12] MEDS: DAKINS QUARTER STRENGTH (0.125%) 480 ML BOTTLE TOP SCH (09:00)
[2021-12-12] MEDS: PANTOPRAZOLE 40 MG TABLET.DR PO SCH (10:29)
[2021-12-12] MEDS: CEFEPIME 2 GM in IV D5W 100 ML IV SCH ×2 (10:29→21:53)
[2021-12-12] MEDS: PROSOURCE / PROSTAT (PYXIS) 30 ML UDC GT SCH ×3 (10:30→17:00)
[2021-12-12 12:27] LABS: BASOPHILS # (AUTO) 0.1 K/uL (0.0-0.2); BASOPHILS % (AUTO) 0.8 % (0.0-2.0); EOSINOPHILS % (AUTO) 3.2 % (0.0-6.0); HEMATOCRIT 30 % (39-51); HEMOGLOBIN 9.6 g/dL (13.5-17.5); LYMPHOCYTES # (AUTO) 1.6 K/uL (0.8-4.8); LYMPHOCYTES % (AUTO) 17.5 % (20.0-44.0); MEAN CORPUSCULAR HGB CONC 32 g/dl (31.0-36.0); MEAN CORPUSCULAR VOLUME 74 fL (80-96); MONOCYTES # (AUTO) 1.1 K/uL (0.1-1.30); MONOCYTES % (AUTO) 12.9 % (2.0-12.0); NEUTROPHILS # (AUTO) 5.8 K/uL (1.8-8.9); NEUTROPHILS % (AUTO) 65.6 % (43.0-81.0); PLATELET COUNT (AUTO) 634 K/uL (150-450); RED BLOOD CELL COUNT(AUTO) 4.03 MIL/uL (4.5-6.0); WHITE BLOOD COUNT (AUTO) 8.9 K/uL (4.3-11.0)
[2021-12-12 12:40] LABS: CALCIUM, SERUM 8.6 mg/dL (8.5-10.1); CREATININE 0.9 mg/dL (0.6-1.3); POTASSIUM 3.8 mmol/L (3.5-5.1)
[2021-12-12] MEDS: THERAHONEY GEL 1.5 OZ TUBE TP SCH (13:58)
[2021-12-12 16:00] VITALS: BP 115/55
--- NOTE | 2021-12-12 17:00 | NUR ---
RN NOTE notified enterprise applications manager sveta that pt platelets are elevated [phone]
[2021-12-12] MEDS: DAKINS FULL STRENGTH (0.5%) 480 ML BOTTLE TOP SCH (18:15)
--- NOTE | 2021-12-12 18:51 | NUR ---
RN CLOSING NOTE PT ASLEEP RESTING COMFORTABLY, A/OX4 AND VERBALLY RESPONSIVE, ABLE TO MAKE NEEDS KNOWN. ON ROOM AIR AT 96%. NO SOB NOTED, BREATHING EVEN AND UNLABORED, NOT IN DISTRESS. IV ACCESS IN ABDIFATAH MIDLINE AND MANISHA MIDLINE. IV PATENT, INTACT AND FLUSHING WELL. PT COMPLAINS THAT MIDLINE IS SLIGHTLY DISCOMFORT BUT TOLERABLE. OFFERED TO REMOVE MIDLINE BUT PT REFUSED.EDUCATED ABOUT THE BENEFITS AND RISKS OF MIDLINE REMOVAL, PT STILL REFUSED. OFFERED TO DO WOUND CARE BUT PT REFUSED. DRESSING IS CLEAN AND DRY. PT PREFERS SOFTWARE RELEASE MANAGER RN TO CHANGE DRESSING. ALL SAFETY MEASURES IN PLACE. HOB SLIGHTLY ELEVATED, ALL SAFETY MEASURES IN PLACE. BED IN LOWEST POSITION AND LOCKED. SIDE RAILS UPx2, BED ALARM ON. CALL LIGHT AND BEDSIDE TABLE WITHIN REACH
--- NOTE | 2021-12-12 19:20 | NUR ---
RN NOTES RECEIVED PT FOR CONTINUITY OF CARE. PATIENT A/OX4 IN NO S/SX OF ACUTE DISTRESS AT THIS TIME; CURRENTLY ON ROOM AIR; WITH 02 SAT >95% AT THIS TIME.WITH IV ACCESS ON L AND R UA MIDLINE BOTH PATENT, INTACT AND FLUSHING WELL. WITH RUNNING IV FLUID ORDERED. WILL ENSURE SAFETY MEASURES WITHIN THE SHIFT. PATIENT BED ALARM IS ON. HEAD OF BED ELEVATED. BED IS LOCKED, IN LOWEST POSITION AND SIDE RAILS UP. CALL LIGHT WITHIN REACH OF THE PATIENT. WILL CONTINUE TO MONITOR AND REASSESS FOR ANY CHANGES AND WILL CARRY OUT ANY ONGOING AND ACTIVE MD ORDER.
[2021-12-12 20:00] VITALS: BP 117/57
[2021-12-12] MEDS: IV NS 0.9% 1,000 ML IV PRN (22:39)
[2021-12-13 04:00] VITALS: BP 132/71
--- NOTE | 2021-12-13 04:00 | NUR ---
RN NOTES PATIENT REMAINED TO BE IN NO SIGNS OF ACUTE RESPIRATORY DISTRESS , SAFE ENVIRONMENT MAINTAINED FOR PT. AM PATIENT CARE RENDERED WITH WOUND CARE. WILL CONTINUE TO MONITOR AND REASSESS FOR ANY CHANGES THROUGHOUT THE SHIFT.
--- NOTE | 2021-12-13 06:30 | NUR ---
RN CLOSING NOTE: PATIENT REMAINS IN ROOM IN NO SIGNS OF RESPIRATORY DISTRESS, PATIENT STILL ON ROOM AIR ;TOLERATING WELL SATURATING @ >95% SP02. SAFETY MEASURES IMPLEMENTED, BED IN LOWEST POSITION, LOCKED, SIDE RAILS UP, CALL LIGHT WITHIN REACH. ALL NEEDS AND ORDERS ADDRESSED DURING THE SHIFT. IV ACCESS MAINTAINED INTACT, SECURED AND FLUSHING WELL. ALL DUE MEDS GIVEN ORDERED & SCHEDULED ; PATIENT TOLERATED WELL. PATIENT KEPT CLEAN AND COMFORTABLE WITHIN THE SHIFT, WOUND CARE DONE. PATIENT ENDORSED TO INCOMING SHIFT RN WITH STABLE VITAL SIGN AND FOR CONTINUITY OF CARE.
--- NOTE | 2021-12-13 08:00 | NUR ---
RN OPENING NOTE: PATIENT REMAINS IN ROOM IN NO SIGNS OF RESPIRATORY DISTRESS, PATIENT STILL ON ROOM AIR ;TOLERATING WELL SATURATING @ >95% SP02. SAFETY MEASURES IMPLEMENTED, BED IN LOWEST POSITION, LOCKED, SIDE RAILS UP, CALL LIGHT WITHIN REACH. ALL NEEDS AND ORDERS ADDRESSED DURING THE SHIFT. IV ACCESS MAINTAINED INTACT, SECURED AND FLUSHING WELL. ALL DUE MEDS GIVEN ORDERED & SCHEDULED ; PATIENT TOLERATED WELL. PATIENT KEPT CLEAN AND COMFORTABLE WITHIN THE SHIFT, WOUND CARE DONE. PATIENT ENDORSED TO INCOMING SHIFT RN WITH STABLE VITAL SIGN AND FOR CONTINUITY OF CARE. Addendum: 12/13/21 at 1247 by REGISTRY [facility] INPATIENT RN1 RN PATIENT REMAINS IN ROOM IN NO SIGNS OF RESPIRATORY DISTRESS, PATIENT ON ROOM AIR ;TOLERATING WELL SATURATING @ >95% SP02. SAFETY MEASURES IMPLEMENTED, BED IN LOWEST POSITION, LOCKED, SIDE RAILS UP, CALL LIGHT WITHIN REACH.
[2021-12-13] MEDS: PROSOURCE / PROSTAT (PYXIS) 30 ML UDC GT SCH ×3 (09:00→17:00)
[2021-12-13] MEDS: DAKINS QUARTER STRENGTH (0.125%) 480 ML BOTTLE TOP SCH (09:00)
[2021-12-13] MEDS: THERAHONEY GEL 1.5 OZ TUBE TP SCH (09:00)
[2021-12-13] MEDS: CEFEPIME 2 GM in IV D5W 100 ML IV SCH ×2 (09:58→21:14)
[2021-12-13] MEDS: PANTOPRAZOLE 40 MG TABLET.DR PO SCH (09:58)
[2021-12-13] MEDS: DAKINS FULL STRENGTH (0.5%) 480 ML BOTTLE TOP SCH (10:00)
[2021-12-13 16:00] VITALS: BP 130/64
[2021-12-13 20:00] VITALS: BP 119/62
[2021-12-13] MEDS: IV NS 0.9% 1,000 ML IV PRN (21:48)
[2021-12-14 04:00] VITALS: BP 115/58
--- NOTE | 2021-12-14 07:10 | NUR ---
MS RN OPENING NOTE PT ASLEEP RESTING COMFORTABLY, A/OX4 AND VERBALLY RESPONSIVE, ABLE TO MAKE NEEDS KNOWN. ON ROOM AIR, PT TOLERATING WELL ABOVE 96%, NO SOB NOTED, BREATHING EVEN AND UNLABORED, NOT IN DISTRESS. IV ACCESS IN ABDIFATAH MIDLINE AND MANISHA MIDLINE RUNNING NS AT 50 ML/HR. ALL SAFETY MEASURES IN PLACE. HOB SLIGHTLY ELEVATED, ALL SAFETY MEASURES IN PLACE. BED IN LOWEST POSITION AND LOCKED. SIDE RAILS UPx2, BED ALARM ON. CALL LIGHT AND BEDSIDE TABLE WITHIN REACH
[2021-12-14 08:00] VITALS: BP 118/51
[2021-12-14] MEDS: PROSOURCE / PROSTAT (PYXIS) 30 ML UDC GT SCH ×3 (08:34→16:14)
[2021-12-14] MEDS: PANTOPRAZOLE 40 MG TABLET.DR PO SCH (08:35)
[2021-12-14] MEDS: CEFEPIME 2 GM in IV D5W 100 ML IV SCH ×2 (08:35→21:13)
[2021-12-14] MEDS: DAKINS FULL STRENGTH (0.5%) 480 ML BOTTLE TOP SCH (09:08)
[2021-12-14] MEDS: DAKINS QUARTER STRENGTH (0.125%) 480 ML BOTTLE TOP SCH (09:08)
[2021-12-14] MEDS: THERAHONEY GEL 1.5 OZ TUBE TP SCH (09:09)
[2021-12-14] MEDS: IV NS 0.9% 1,000 ML IV PRN (14:40)
--- NOTE | 2021-12-14 15:00 | NUR ---
RN notes: offered to do wound care pt said he had wound care done around 4 am and he would like to be done later by rn night he is not refusing but prefer to have it done later
[2021-12-14 16:00] VITALS: BP 121/56
[2021-12-14 20:00] VITALS: BP 117/67
[2021-12-15] VITALS: BP 118/67
--- NOTE | 2021-12-15 07:00 | NUR ---
RN MED SURGE CLOSING NOTE: ALERT X4. UNLABORED BREATHING AT ROOM AIR SATING AT 95 %. LEFT AND RIGHT UPPER ARM MIDLINES INTACT PATENT. IVF 50 ML/HR. NO SIDE EFFECTS FOR ABX. ABLE TO SELF TURN AND REPOSITIONED. USES URINAL. OFFERED WOUND CARE ON BLE AND SACRAL, BUTTOCKS WOUND BUT DECLINED. RISK VS BENEFITS EXPLAINED AND VERBALIZED UNDERSTANDING. OFFERED TIMES THREE AND STILL REFUSED. HOB SEMI-FOWLERS POSITION. BILATERAL HALF SIDE RAILS UP X2. BED IN LOW POSITION, LOCKED, WITH EXIT ALARM ON. CALL LIGHT IN REACH.
[2021-12-15 08:00] VITALS: BP 105/70
[2021-12-15] MEDS: PANTOPRAZOLE 40 MG TABLET.DR PO SCH (08:28)
[2021-12-15] MEDS: PROSOURCE / PROSTAT (PYXIS) 30 ML UDC GT SCH ×3 (08:28→16:03)
[2021-12-15] MEDS: CEFEPIME 2 GM in IV D5W 100 ML IV SCH (08:28)
[2021-12-15] MEDS: DAKINS QUARTER STRENGTH (0.125%) 480 ML BOTTLE TOP SCH (09:00)
[2021-12-15] MEDS: THERAHONEY GEL 1.5 OZ TUBE TP SCH (09:00)
[2021-12-15] MEDS: DAKINS FULL STRENGTH (0.5%) 480 ML BOTTLE TOP SCH (09:31)
--- NOTE | 2021-12-15 09:39 | NUR ---
MS RN OPENING NOTE PT ASLEEP RESTING COMFORTABLY, A/OX4 AND VERBALLY RESPONSIVE, ABLE TO MAKE NEEDS KNOWN. ON ROOM AIR, PT TOLERATING WELL, NO SOB NOTED, BREATHING EVEN AND UNLABORED, NOT IN DISTRESS. IV ACCESS IN ABDIFATAH MIDLINE AND MANISHA MIDLINE RUNNING NS AT 50 ML/HR. ALL SAFETY MEASURES IN PLACE. HOB SLIGHTLY ELEVATED, ALL SAFETY MEASURES IN PLACE. BED IN LOWEST POSITION AND LOCKED. SIDE RAILS UPx2, BED ALARM ON. RLL DRESSING NOTED DRY AND INTACT. CALL LIGHT AND BEDSIDE TABLE WITHIN REACH. WILL CONTINUE PLAN OF CARE
[2021-12-15 16:00] VITALS: BP 121/67
--- NOTE | 2021-12-15 16:30 | NUR ---
RN NOTES PATIENT NOTED BEING DISCHARGE TODAY, DISCHARGE INSTRUCTIONS SIGNED BY PATIENT, PER MANUAL WRITER DON'T NEED TO CALL [facility] FOR REPORT, AWAITING FOR TRANSPORTATION, WILL CONTINUE PLAN OF CARE FOR THE PATIENT.
--- NOTE | 2021-12-15 18:54 | NUR ---
SCIENTIFIC INFORMATICS PROJECT LEADER NOTES GAVE REPORT TO 2 EMT, ALL PERSONAL BELONGINGS RELEASED TO THE PATIENT, ALL DISCHARGE PAPER WORKS SIGNED BY THE PATIENT, ALL DISCHARGE PAPER WORKS GAVE TO THE PATIENT. PATIENT LEFT THE HOSPITAL VIA GURNEY STABLE.
== END 2021-12-15 19:00 | DRG 710 ==
LOC: ER 17:52 → TRANSITION 11-19 00:51 → TELE1 11-19 08:15 → MEDSG1 11-23 13:26 → UNDODISIN 12-03 15:49 → MEDSG1 12-03 19:10
PROVIDERS: ADMIT Nurse Practitioner Acute Care
PROC: 0KBS0ZZ Excision of Right Lower Leg Muscle, Open Approach (ICD-10-PCS; 2021-11-19)
PROC: 05HA33Z Insertion of Infusion Device into Left Brachial Vein, Percutaneous Approach (ICD-10-PCS; 2021-11-20)
PROC: 05HF33Z Insertion of Infusion Device into Left Cephalic Vein, Percutaneous Approach (ICD-10-PCS; 2021-11-25)
PROC: 0JBC0ZZ Excision of Pelvic Region Subcutaneous Tissue and Fascia, Open Approach (ICD-10-PCS; 2021-11-28)
PROC: 5A09457 Assistance with Respiratory Ventilation, 24-96 Consecutive Hours, Continuous Positive Airway Pressure (ICD-10-PCS; principal; 2021-12-12)
DX: A41.9 Sepsis, unspecified organism (principal); N17.0 Acute kidney failure with tubular necrosis; M72.6 Necrotizing fasciitis; E43 Unspecified severe protein-calorie malnutrition; A48.0 Gas gangrene; E87.20 Acidosis, unspecified; E83.39 Other disorders of phosphorus metabolism; D63.8 Anemia in other chronic diseases classified elsewhere; E87.1 Hypo-osmolality and hyponatremia; L89.313 Pressure ulcer of right buttock, stage 3; E86.0 Dehydration; L03.115 Cellulitis of right lower limb; L03.116 Cellulitis of left lower limb; D75.839 Thrombocytosis, unspecified; Z20.822 Contact with and (suspected) exposure to COVID-19; L97.919 Non-pressure chronic ulcer of unspecified part of right lower leg with unspecified severity; I73.9 Peripheral vascular disease, unspecified; I87.2 Venous insufficiency (chronic) (peripheral); B85.0 Pediculosis due to Pediculus humanus capitis; E87.5 Hyperkalemia; R65.20 Severe sepsis without septic shock; E86.1 Hypovolemia; R74.01 Elevation of levels of liver transaminase levels; K80.10 Calculus of gallbladder with chronic cholecystitis without obstruction; E88.09 Other disorders of plasma-protein metabolism, not elsewhere classified; D50.9 Iron deficiency anemia, unspecified; D68.59 Other primary thrombophilia; E66.9 Obesity, unspecified; E87.8 Other disorders of electrolyte and fluid balance, not elsewhere classified; L89.156 Pressure-induced deep tissue damage of sacral region; Z59.00 Homelessness unspecified; Z68.31 Body mass index [BMI] 31.0-31.9, adult; B96.5 Pseudomonas (aeruginosa) (mallei) (pseudomallei) as the cause of diseases classified elsewhere; B96.1 Klebsiella pneumoniae [K. pneumoniae] as the cause of diseases classified elsewhere; B95.0 Streptococcus, group A, as the cause of diseases classified elsewhere; B96.4 Proteus (mirabilis) (morganii) as the cause of diseases classified elsewhere; B96.89 Other specified bacterial agents as the cause of diseases classified elsewhere
CPT/HCPCS: 36410; 36415; 71045-TC; 73590-TC; 73700-TC; 76770-TC; 80048-TC; 80053-TC; 80076-TC; 81001; 82570-TC; 82962-TC; 83605-TC; 83735-TC; 84100-TC; 84300-TC; 84484-TC; 85025-TC; 85730-TC; 86850-TC; 87040-TC; 87070-TC; 87081-TC; 87186-TC; 90715; 93971-TC; 97112-TC; 97530-TC; A4216; A4217; A6253; A6403; A6407; C9113; C9803; G0378; G0480; J0692; J1450; J1644; J1815; J2185; J2270; J2405; J2543; J3370; J3475; J3490; J7030; J7050; J7060; P9016; P9047; U0003

== ENCOUNTER 2024-02-07 23:09 | Inpatient (IN) | payer MEDICAID, OTHER ==
[~2024-02-07] VITALS: Ht 180.3 cm; Wt 113.4 kg
[2024-02-08 01:03] LABS: BASOPHILS # (AUTO) 0.1 K/uL (0.0-0.2); BASOPHILS % (AUTO) 0.3 % (0.0-2.0); EOSINOPHILS # (AUTO) 0.1 K/uL (0.0-0.7); EOSINOPHILS % (AUTO) 0.4 % (0.0-6.0); HEMATOCRIT 35 % (39-51); HEMOGLOBIN 11.7 g/dL (13.5-17.5); LYMPHOCYTES # (AUTO) 1.6 K/uL (0.8-4.8); LYMPHOCYTES % (AUTO) 10.5 % (20.0-44.0); MEAN CORPUSCULAR HEMOGLOBIN 28 PG (26.0-33.0); MEAN CORPUSCULAR HGB CONC 33 g/dl (31.0-36.0); MEAN CORPUSCULAR VOLUME 85 fL (80-96); MONOCYTES # (AUTO) 1.6 K/uL (0.1-1.30); MONOCYTES % (AUTO) 10.3 % (2.0-12.0); NEUTROPHILS # (AUTO) 12.1 K/uL (1.8-8.9); NEUTROPHILS % (AUTO) 78.5 % (43.0-81.0); PLATELET COUNT (AUTO) 318 K/uL (150-450); RED BLOOD CELL COUNT(AUTO) 4.16 MIL/uL (4.5-6.0); RED CELL DISTRIBUTION WIDTH 14.7 % (11.5-15.0); WHITE BLOOD COUNT (AUTO) 15.4 K/uL (4.3-11.0)
[2024-02-08 01:42] LABS: CALCIUM, SERUM 8.5 mg/dL (8.5-10.1); CREATININE 0.8 mg/dL (0.6-1.3); POTASSIUM 4.4 mmol/L (3.5-5.1)
[2024-02-08 01:48] LABS: ALBUMIN 1.5 g/dL (3.4-5.0); BILIRUBIN,TOTAL 0.6 mg/dL (0.2-1.0); TOTAL PROTEIN, SERUM 7.6 g/dL (6.4-8.2)
[2024-02-08 03:18] LABS: LYMPHOCYTES % (MANUAL) 12 % (16-48); MONOCYTES % (MANUAL) 11 % (0-11.0); NEUTROPHILS % (MANUAL) 77 (42-76); PLATELET ESTIMATE ADEQUATE
[2024-02-08] MEDS ORDERED: CT SWABBABLE VALVE TRANS SET 1 EA INFUS.SET MC ONE (03:21)
[2024-02-08] MEDS ORDERED: IV NS 0.9% 250 ML IV ONE (03:21)
[2024-02-08] MEDS ORDERED: IOHEXOL-350 100 ML VIAL IV ONE (03:21)
[2024-02-08] MEDS: VANCOMYCIN HCL 1.25 GM in IV D5W 260 ML IV ONE (04:00)
[2024-02-08] MEDS ORDERED: VANCOMYCIN 500 MG VIAL ONE (04:03)
[2024-02-08 04:30] LABS: APPEARANCE,URINE CLEAR (CLEAR); BILIRUBIN,URINE 1+ (NEGATIVE); BLOOD, URINE NEGATIVE Ery/uL (NEGATIVE); COLOR,URINE YELLOW (YELLOW); KETONES,URINE 3+ mg/dL (NEGATIVE); LEUKOCYTE ESTERASE ,URINE NEGATIVE (NEGATIVE); NITRITE, URINE NEGATIVE (NEGATIVE); PROTEIN,URINE TRACE mg/dl (NEGATIVE); UGLUCOSE 3+ mg/dL (NEGATIVE); UROBILINOGEN,URINE 0.2 EU/dL (0.2)
[2024-02-08 04:42] LABS: AMPHETAMINE, URINE NEGATIVE (NEGATIVE); BARBITURATE, URINE NEGATIVE (NEGATIVE); BENZODIAZEPINE, URINE NEGATIVE (NEGATIVE); CANNABINOID, URINE NEGATIVE (NEGATIVE); COCCAINE, URINE NEGATIVE (NEGATIVE); OPIATE, URINE NEGATIVE (NEGATIVE); PHENCYCLIDINE SCREEN,URINE NEGATIVE (NEGATIVE)
[2024-02-08 04:58] LABS: ADD URINE CULTURE NO; BACTERIA,URINE Rare /HPF (None Seen); MUCUS,URINE Few /LPF (None Seen); RBC,URINE NONE SEEN /HPF (0-2); WBC,URINE NONE SEEN /HPF (0-3)
[2024-02-08 05:00] LABS: SQUAMOUS EPITHELIAL CELL,UR None Seen /HPF (None Seen)
[2024-02-08] MEDS ORDERED: MAG HYDROX/AL HYDROX/SIMETH 30 ML UDC PO PRN (05:30)
[2024-02-08] MEDS ORDERED: MAGNESIUM HYDROXIDE 30 ML UDC PO PRN ×2 (05:30→08:30)
[2024-02-08] MEDS ORDERED: ZOLPIDEM TARTRATE 5 MG TABLET PO PRN (05:30)
[2024-02-08] MEDS: ENOXAPARIN SODIUM 40 MG/0.4 ML DISP.SYRIN SQ SCH (05:30)
[2024-02-08] MEDS ORDERED: ONDANSETRON HCL/PF 4 MG/2 ML VIAL IVP PRN (05:30)
[2024-02-08] MEDS ORDERED: ACETAMINOPHEN 325 MG TABLET PO PRN (05:30)
[2024-02-08] MEDS ORDERED: DOCU100T2 PO (08:22)
[2024-02-08] MEDS ORDERED: CEPH-570 PO (08:22)
[2024-02-08] MEDS ORDERED: NALO4SPR NS (08:22)
[2024-02-08] MEDS ORDERED: MELA5TAB PO (08:22)
[2024-02-08] MEDS ORDERED: FAMO40TA7 PO (08:22)
[2024-02-08] MEDS ORDERED: OXYC10TA49 PO (08:22)
[2024-02-08] MEDS ORDERED: ASCO-352 PO (08:22)
[2024-02-08] MEDS ORDERED: MAGN400O6 PO (08:22)
[2024-02-08] MEDS ORDERED: ACET-2030 PO (08:22)
[2024-02-08] MEDS ORDERED: MINE50OI TP (08:22)
[2024-02-08] MEDS ORDERED: FERR-68 PO (08:22)
[2024-02-08] MEDS ORDERED: TRIA15CR2 TP (08:22)
[2024-02-08] MEDS ORDERED: MUPI22OI7 TP (08:22)
[2024-02-08] MEDS ORDERED: HOME MED MISCELLANEOUS XX SCH (08:30)
[2024-02-08] MEDS: PANTOPRAZOLE 40 MG TABLET.DR PO SCH (08:33)
[2024-02-08] MEDS: FERROUS SULFATE (325 MG) 325 MG/TAB TABLET PO SCH (08:37)
[2024-02-08 09:00] VITALS: BP 117/70; TEMP 98.4; O2SAT 97
[2024-02-08] MEDS ORDERED: DEXTROSE 50%-WATER 50 ML DISP.SYRIN IV PRN (09:00)
[2024-02-08] MEDS: MUPIROCIN OINT 2% 22 GM TUBE TP SCH (09:14)
[2024-02-08] MEDS: THERAHONEY GEL 1.5 OZ TUBE TP SCH (09:30)
[2024-02-08] MEDS: ZOSYN IVPB 3.375 G in IV D5W 50ml IV SCH (09:30)
[2024-02-08] MEDS: IV NS 0.9% 1,000 ML IV PRN (09:31)
[2024-02-08] MEDS: MINERAL OIL/PETROL OINT 396 GM JAR TP SCH (10:43)
[2024-02-08] MEDS: INSULIN REGULAR, HUMAN 100 UNIT/ML 3 ML VIAL SQ PRN (12:48)
[2024-02-08] MEDS: BLOOD SUGAR DIAGNOSTIC 1 EACH STRIP IN SCH (12:49)
[2024-02-08] MEDS: VANCOMYCIN 1 GM in IV D5W 250ml IV SCH (13:05)
[2024-02-08 16:00] VITALS: BP 108/59; TEMP 98.1; O2SAT 100
[2024-02-08 19:13] LABS: BASOPHILS % (AUTO) 0.2 % (0.0-2.0); EOSINOPHILS # (AUTO) 0.1 K/uL (0.0-0.7); EOSINOPHILS % (AUTO) 0.7 % (0.0-6.0); HEMATOCRIT 34 % (39-51); HEMOGLOBIN 11.1 g/dL (13.5-17.5); LYMPHOCYTES # (AUTO) 1.1 K/uL (0.8-4.8); LYMPHOCYTES % (AUTO) 9.1 % (20.0-44.0); MEAN CORPUSCULAR HEMOGLOBIN 27 PG (26.0-33.0); MEAN CORPUSCULAR HGB CONC 32 g/dl (31.0-36.0); MEAN CORPUSCULAR VOLUME 85 fL (80-96); MONOCYTES # (AUTO) 1.2 K/uL (0.1-1.30); MONOCYTES % (AUTO) 9.3 % (2.0-12.0); NEUTROPHILS # (AUTO) 10.1 K/uL (1.8-8.9); NEUTROPHILS % (AUTO) 80.7 % (43.0-81.0); PLATELET COUNT (AUTO) 310 K/uL (150-450); RED BLOOD CELL COUNT(AUTO) 4.04 MIL/uL (4.5-6.0); RED CELL DISTRIBUTION WIDTH 15.1 % (11.5-15.0); WHITE BLOOD COUNT (AUTO) 12.6 K/uL (4.3-11.0)
[2024-02-08 19:47] LABS: CALCIUM, SERUM 8.3 mg/dL (8.5-10.1); CREATININE 0.8 mg/dL (0.6-1.3); MAGNESIUM 1.9 mg/dL (1.8-2.4); PHOSPHORUS 3.5 mg/dL (2.5-4.9); POTASSIUM 3.9 mmol/L (3.5-5.1)
[2024-02-08 20:00] VITALS: BP 110/62; TEMP 98.6; O2SAT 98
[2024-02-09 08:00] VITALS: BP 111/71; TEMP 98.1; O2SAT 97
[2024-02-09 08:04] LABS: BASOPHILS % (AUTO) 0.3 % (0.0-2.0); EOSINOPHILS # (AUTO) 0.2 K/uL (0.0-0.7); EOSINOPHILS % (AUTO) 1.6 % (0.0-6.0); HEMATOCRIT 33 % (39-51); LYMPHOCYTES # (AUTO) 1.4 K/uL (0.8-4.8); LYMPHOCYTES % (AUTO) 12.7 % (20.0-44.0); MEAN CORPUSCULAR HEMOGLOBIN 28 PG (26.0-33.0); MEAN CORPUSCULAR HGB CONC 33 g/dl (31.0-36.0); MEAN CORPUSCULAR VOLUME 85 fL (80-96); MONOCYTES # (AUTO) 1.1 K/uL (0.1-1.30); MONOCYTES % (AUTO) 10.3 % (2.0-12.0); NEUTROPHILS # (AUTO) 8.2 K/uL (1.8-8.9); NEUTROPHILS % (AUTO) 75.1 % (43.0-81.0); PLATELET COUNT (AUTO) 289 K/uL (150-450); RED BLOOD CELL COUNT(AUTO) 3.93 MIL/uL (4.5-6.0); RED CELL DISTRIBUTION WIDTH 14.7 % (11.5-15.0); WHITE BLOOD COUNT (AUTO) 10.9 K/uL (4.3-11.0)
[2024-02-09 08:27] LABS: CALCIUM, SERUM 8.3 mg/dL (8.5-10.1); CREATININE 0.7 mg/dL (0.6-1.3); MAGNESIUM 1.9 mg/dL (1.8-2.4); PHOSPHORUS 4.3 mg/dL (2.5-4.9); POTASSIUM 3.7 mmol/L (3.5-5.1)
[2024-02-09 09:03] LABS: THYROID STIMULATING HORMONE 2.46 uIU/mL (0.358-3.74); URIC ACID 3.1 mg/dL (2.6-7.2)
[2024-02-09] MEDS: FAMOTIDINE (20 MG) 20 MG TABLET PO SCH (10:00)
[2024-02-09 16:00] VITALS: BP 103/64; TEMP 97.7; O2SAT 100
[2024-02-09 20:00] VITALS: BP 116/53; TEMP 97.9; O2SAT 100; O2SAT 95
[2024-02-09] MEDS: FAMOTIDINE (20 MG) 20 MG TABLET PO ONE (22:30)
[2024-02-09] MEDS: INSULIN GLARGINE, 100 UNIT/ML CARTRIDGE SQ SCH (22:32)
[2024-02-10 06:58] LABS: CALCIUM, SERUM 8.5 mg/dL (8.5-10.1); CREATININE 0.9 mg/dL (0.6-1.3); POTASSIUM 3.4 mmol/L (3.5-5.1)
[2024-02-10 08:00] VITALS: BP 119/76; TEMP 97.8; O2SAT 98
[2024-02-10] MEDS: VANCOMYCIN 1 GM in IV D5W 250ml IV SCH (08:26)
[2024-02-10] MEDS: ZOSYN IVPB 3.375 G in IV D5W 50ml IV SCH (09:44)
[2024-02-10] MEDS: POTASSIUM CHLORIDE 20 MEQ TAB.PRT.SR PO ONE (09:53)
[2024-02-10] MEDS: DOCUSATE SODIUM 100 MG CAPSULE PO PRN (09:53)
[2024-02-10 16:13] VITALS: BP 122/73; TEMP 97.9; O2SAT 99
[2024-02-10 20:00] VITALS: BP 114/69; TEMP 97.9; O2SAT 97
[2024-02-10] MEDS: INSULIN GLARGINE, 100 UNIT/ML CARTRIDGE SQ SCH (22:13)
[2024-02-11 07:43] LABS: CALCIUM, SERUM 8.1 mg/dL (8.5-10.1); POTASSIUM 3.4 mmol/L (3.5-5.1)
[2024-02-11 08:00] VITALS: BP 83/53; TEMP 97.9; O2SAT 95
[2024-02-11] MEDS: INSULIN ASPART/LISPRO 100 UNIT/ML CARTRIDGE SQ SCH (09:59)
[2024-02-11] MEDS: POTASSIUM CHLORIDE 20 MEQ TAB.PRT.SR PO SCH (10:48)
[2024-02-11 16:00] VITALS: BP 127/78; TEMP 97.9; O2SAT 99
[2024-02-11 20:00] VITALS: BP 122/68; TEMP 98.1; O2SAT 100
[2024-02-12 08:00] VITALS: BP 132/75; TEMP 97.7; O2SAT 99
[2024-02-12 12:25] LABS: CALCIUM, SERUM 7.9 mg/dL (8.5-10.1); CREATININE 1.3 mg/dL (0.6-1.3); POTASSIUM 3.8 mmol/L (3.5-5.1)
[2024-02-12 16:00] VITALS: BP 139/85; TEMP 97.9; O2SAT 98
[2024-02-12 22:04] VITALS: BP 122/77; TEMP 98.2; O2SAT 96
[2024-02-12] MEDS ORDERED: VANCOMYCIN 1 GM in IV D5W 250ml IV SCH (23:00)
[2024-02-13 07:00] VITALS: BP 148/86; TEMP 97.9; O2SAT 97
[2024-02-13] MEDS ORDERED: FAMOTIDINE (20 MG) 20 MG TABLET PO SCH (10:00)
[2024-02-13 16:00] VITALS: BP 136/75; TEMP 98.1; O2SAT 99
[2024-02-13 20:00] VITALS: BP 115/67; TEMP 98.2; O2SAT 98
[2024-02-13] MEDS: FAMOTIDINE (20 MG) 20 MG TABLET PO SCH (21:35)
[2024-02-13 23:16] VITALS: BP 115/67; TEMP 98.2; O2SAT 98
[2024-02-14] MEDS: Z GUARD REMEDY 4 OZ OINT TP PRN (10:46)
[2024-02-14 11:19] LABS: CALCIUM, SERUM 7.8 mg/dL (8.5-10.1); CREATININE 1.4 mg/dL (0.6-1.3); POTASSIUM 3.6 mmol/L (3.5-5.1)
== END 2024-02-14 13:30 | DRG 383 ==
LOC: ER 23:11 → MED 02-08 04:54
PROVIDERS: ADMIT Nurse Practitioner Acute Care; ATTEND Nurse Practitioner Acute Care
PROC: 02HV33Z Insertion of Infusion Device into Superior Vena Cava, Percutaneous Approach (ICD-10-PCS; principal; 2024-02-14)
PROC: B548ZZA Ultrasonography of Superior Vena Cava, Guidance (ICD-10-PCS; 2024-02-14)
DX: L02.31 Cutaneous abscess of buttock (principal); E22.2 Syndrome of inappropriate secretion of antidiuretic hormone; E44.0 Moderate protein-calorie malnutrition; E88.09 Other disorders of plasma-protein metabolism, not elsewhere classified; E11.65 Type 2 diabetes mellitus with hyperglycemia; B95.61 Methicillin susceptible Staphylococcus aureus infection as the cause of diseases classified elsewhere; B96.1 Klebsiella pneumoniae [K. pneumoniae] as the cause of diseases classified elsewhere; D64.9 Anemia, unspecified; E66.9 Obesity, unspecified; E86.1 Hypovolemia; E87.6 Hypokalemia; G47.9 Sleep disorder, unspecified; G62.9 Polyneuropathy, unspecified; M19.90 Unspecified osteoarthritis, unspecified site; Z94.5 Skin transplant status; Z91.018 Allergy to other foods; Z87.828 Personal history of other (healed) physical injury and trauma; Z79.899 Other long term (current) drug therapy; Z74.01 Bed confinement status; Z86.59 Personal history of other mental and behavioral disorders; Z68.34 Body mass index [BMI] 34.0-34.9, adult; F41.9 Anxiety disorder, unspecified; Z91.81 History of falling; R63.1 Polydipsia
CPT/HCPCS: 36415; 72193-TC; 80048-TC; 80053-TC; 80202-TC; 81001; 82962-TC; 83735-TC; 84100-TC; 84443-TC; 84550-TC; 85025-TC; 87040-TC; 93971-TC; A4223; A6253; A6403; G0378; J1650; J1815; J2543; J3370; J7030; J7050; J7060; Q9967